=== PATIENT | female | born 1945 | race Two or more races ===

== ENCOUNTER 2022-07-20 11:59 | Inpatient (IN) | payer MEDICARE, MEDICAID ==
[~2022-07-20] VITALS: Ht 147.3 cm; Wt 66.8 kg
[2022-07-20 13:29] LABS: Basophils # (auto) 0.1 10 ^3/uL (0-0.2); Eosinophils # (auto) 0 10 ^3/uL (0-0.8); Eosinophils % (auto) 0.1 % (0.0-7.0); Lymphocytes # (auto) 2.5 10 ^3/uL (0.4-5.4); Neutrophils # (auto) 8.5 10 ^3/uL (1.6-8.6)
[2022-07-20 13:31] LABS: Basophils % (auto) 0.5 % (0.0-2.0); Hematocrit 54.2 % (36.0-46.0); Hemoglobin 18.4 g/dL (12.2-16.2); Lymphocytes % (auto) 20.6 % (10.0-50.0); Mean Corpuscular Hemoglobin 29.6 pg (28.0-32.0); Mean Corpuscular Volume 86.9 fL (80.0-100.0); Monocytes % (auto) 8.1 % (0.0-12.0); Neutrophils % (auto) 70.7 % (37.0-80.0); Nucleated Red Blood Cells % 0.8 %; Red Blood Cells 6.23 10^6/uL (4.0-5.20); Red Cell Distribution Width 14.7 % (11.8-14.3); White Blood Cell 12.1 10^3/uL (4.4-10.8)
[2022-07-20 13:57] LABS: Albumin 4.3 g/dL (3.4-5.0); BUN/Creatinine Ratio 14.2; Calcium 10.3 mg/dL (8.5-10.1); Potassium 3.9 mmol/L (3.5-5.1)
[2022-07-20 14:07] LABS: Bilirubin, Total 0.5 mg/dL (0.2-1.0)
[2022-07-20] MEDS ORDERED: metroNIDAZOLE 500MG/100ML 100 ML IV ONE (16:15)
[2022-07-20] MEDS ORDERED: MORPHINE SULFATE INJ 2 MG/ml SYRG IV PRN (16:15)
[2022-07-20] MEDS ORDERED: ALBUTEROL SULF 2.5 MG/0.5ML(0.5%) NEB SOLN NEB PRN (16:30)
[2022-07-20] MEDS ORDERED: PANTOPRAZOLE 40 MG/10 ML VIAL INJ IV ONE (16:30)
[2022-07-20] MEDS: LACTATED RINGER'S 1,000 ML IV SCH (16:56)
[2022-07-20] MEDS ORDERED: DEXTROSE (50%) 50ML SYRG IV PRN (17:15)
[2022-07-20 17:16] LABS: INR 1.07 (0.9-1.15)
[2022-07-20] MEDS: InsuLIN REG 1unit/0.01ml Soln (100units/ml) SC SCH (17:38)
[2022-07-20] MEDS: ACCU-CHEK COMFORT CURVE STRIP VI SCH (17:38)
[2022-07-20 22:49] VITALS: BP 124/76
[2022-07-20] MEDS: metroNIDAZOLE 500MG/100ML 100 ML IV SCH (22:54)
[2022-07-21] MEDS: ACCU-CHEK COMFORT CURVE STRIP VI SCH ×4 (00:28→18:23)
[2022-07-21] MEDS: InsuLIN REG 1unit/0.01ml Soln (100units/ml) SC SCH ×4 (00:42→18:00)
[2022-07-21] MEDS: ONDANSETRON HCL 4 MG/2 ML VIAL IV PRN (00:48)
[2022-07-21 03:51] LABS: Basophils # (auto) 0.3 10 ^3/uL (0-0.2); Basophils % (auto) 2.4 % (0.0-2.0); Eosinophils # (auto) 0 10 ^3/uL (0-0.8); Eosinophils % (auto) 0.3 % (0.0-7.0); Hematocrit 50.1 % (36.0-46.0); Hemoglobin 16.9 g/dL (12.2-16.2); Lymphocytes # (auto) 1.8 10 ^3/uL (0.4-5.4); Lymphocytes % (auto) 14.9 % (10.0-50.0); Mean Corpuscular Hemoglobin 29.3 pg (28.0-32.0); Mean Corpuscular Hgb Conc. 33.8 g/dL (32.0-36.0); Mean Corpuscular Volume 86.7 fL (80.0-100.0); Monocytes # (auto) 0.9 10 ^3/uL (0-1.3); Monocytes % (auto) 6.9 % (0.0-12.0); Neutrophils # (auto) 9.3 10 ^3/uL (1.6-8.6); Neutrophils % (auto) 75.5 % (37.0-80.0); Red Blood Cells 5.78 10^6/uL (4.0-5.20); Red Cell Distribution Width 14.7 % (11.8-14.3); White Blood Cell 12.4 10^3/uL (4.4-10.8)
[2022-07-21 04:11] LABS: Calcium 9.1 mg/dL (8.5-10.1); Potassium 3.6 mmol/L (3.5-5.1)
[2022-07-21 04:13] LABS: BUN/Creatinine Ratio 14.8
[2022-07-21] MEDS: metroNIDAZOLE 500MG/100ML 100 ML IV SCH ×3 (05:55→21:26)
[2022-07-21] MEDS: LACTATED RINGER'S 1,000 ML IV SCH ×2 (05:58→19:10)
[2022-07-21] MEDS: PANTOPRAZOLE 40 MG/10 ML VIAL INJ IV SCH (11:47)
[2022-07-21] MEDS: NICOTINE 7MG/24HR TOPICAL PATCH TD SCH (11:48)
[2022-07-21] MEDS ORDERED: levoFLOXacin 500MG 100 ML IV ONE (12:00)
[2022-07-21] MEDS ORDERED: SERT-160 PO (15:56)
[2022-07-21] MEDS ORDERED: LISI-275 PO (15:56)
[2022-07-21] MEDS ORDERED: AMLO-489 PO (15:56)
[2022-07-21] MEDS ORDERED: FLUT100M INH (15:57)
[2022-07-21] MEDS ORDERED: FLUT50SP NAS (15:57)
[2022-07-21 17:00] VITALS: BP 107/53
[2022-07-21 20:02] LABS: Urine Blood Negative /uL (Negative); Urine Specific Gravity 1.018 (1.001-1.035)
[2022-07-21 22:00] VITALS: BP 117/71
[2022-07-22] MEDS: ACCU-CHEK COMFORT CURVE STRIP VI SCH ×4 (01:22→17:27)
[2022-07-22 05:00] VITALS: BP 127/57
[2022-07-22] MEDS: metroNIDAZOLE 500MG/100ML 100 ML IV SCH ×3 (05:38→23:44)
[2022-07-22] MEDS: InsuLIN REG 1unit/0.01ml Soln (100units/ml) SC SCH ×5 (05:48→17:34)
[2022-07-22] MEDS: LACTATED RINGER'S 1,000 ML IV SCH ×2 (07:55→21:50)
[2022-07-22 09:00] VITALS: BP 113/76
[2022-07-22] MEDS: levoFLOXacin 250MG 100 ML IV SCH (10:46)
[2022-07-22] MEDS: PANTOPRAZOLE 40 MG/10 ML VIAL INJ IV SCH (10:46)
[2022-07-22] MEDS: NICOTINE 7MG/24HR TOPICAL PATCH TD SCH (10:47)
[2022-07-22 13:00] VITALS: BP 144/63
[2022-07-22 14:31] VITALS: BP 145/74
[2022-07-22 16:56] VITALS: BP 144/65
[2022-07-22 22:00] VITALS: BP 151/64
[2022-07-23] VITALS (7 sets, daily range): BP systolic 117–166; BP diastolic 53–87
[2022-07-23] MEDS: ACCU-CHEK COMFORT CURVE STRIP VI SCH ×4 (00:01→18:06)
[2022-07-23] MEDS: ONDANSETRON HCL 4 MG/2 ML VIAL IV PRN ×2 (00:13→05:25)
[2022-07-23] MEDS: FAMOTIDINE (10MG/ML) 2ML VL IV SCH ×2 (05:23→10:55)
[2022-07-23] MEDS: InsuLIN REG 1unit/0.01ml Soln (100units/ml) SC SCH ×4 (05:24→18:00)
[2022-07-23] MEDS: metroNIDAZOLE 500MG/100ML 100 ML IV SCH ×2 (05:45→15:33)
[2022-07-23] MEDS ORDERED: GASTROGRAFIN 120 ML SOL ONE (09:03)
[2022-07-23] MEDS: levoFLOXacin 250MG 100 ML IV SCH (10:00)
[2022-07-23] MEDS: NICOTINE 7MG/24HR TOPICAL PATCH TD SCH (10:55)
[2022-07-23] MEDS: LACTATED RINGER'S 1,000 ML IV SCH (11:10)
[2022-07-24] MEDS: LACTATED RINGER'S 1,000 ML IV SCH ×2 (00:30→13:50)
[2022-07-24] MEDS: metroNIDAZOLE 500MG/100ML 100 ML IV SCH ×3 (04:02→14:00)
[2022-07-24] MEDS: ACCU-CHEK COMFORT CURVE STRIP VI SCH ×3 (04:03→11:49)
[2022-07-24 05:00] VITALS: BP 139/66
[2022-07-24] MEDS: InsuLIN REG 1unit/0.01ml Soln (100units/ml) SC SCH ×3 (05:39→11:49)
[2022-07-24 09:00] VITALS: BP 150/69
[2022-07-24] MEDS: levoFLOXacin 250MG 100 ML IV SCH (10:00)
[2022-07-24] MEDS: NICOTINE 7MG/24HR TOPICAL PATCH TD SCH (10:35)
[2022-07-24] MEDS: FAMOTIDINE (10MG/ML) 2ML VL IV SCH (10:37)
[2022-07-24] MEDS ORDERED: METR500T PO (12:43)
[2022-07-24] MEDS ORDERED: LEVO500T31 PO (12:43)
[2022-07-24 13:00] VITALS: BP_SYST 147; BP_SYST 171; BP_DIAS 62; BP_DIAS 74
[2022-07-24] MEDS ORDERED: cloNIDine HCL 0.1 MG TAB PO ONE (13:00)
[2022-07-24 13:14] VITALS: BP 147/62
[2022-07-24 13:47] VITALS: BP 147/62
== END 2022-07-24 16:19 | disposition home or self-care (01) | DRG 871 ==
LOC: ER 11:59 → OVERFLOW 16:19 → WEST WING 07-21 15:13
PROVIDERS: ADMIT Registered Nurse; ATTEND Family Medicine
PROC: 0D9670Z Drainage of Stomach with Drainage Device, Via Natural or Artificial Opening (ICD-10-PCS; principal; 2022-07-22)
DX: A41.9 Sepsis, unspecified organism (principal); N17.0 Acute kidney failure with tubular necrosis; K46.0 Unspecified abdominal hernia with obstruction, without gangrene; E86.0 Dehydration; I10 Essential (primary) hypertension; F17.210 Nicotine dependence, cigarettes, uncomplicated; J43.9 Emphysema, unspecified; I49.5 Sick sinus syndrome; Z20.822 Contact with and (suspected) exposure to COVID-19; D50.9 Iron deficiency anemia, unspecified; Z88.0 Allergy status to penicillin; Z88.1 Allergy status to other antibiotic agents; Z88.6 Allergy status to analgesic agent; Z90.49 Acquired absence of other specified parts of digestive tract; Z90.710 Acquired absence of both cervix and uterus; Z99.3 Dependence on wheelchair; Z71.6 Tobacco abuse counseling; Z86.73 Personal history of transient ischemic attack (TIA), and cerebral infarction without residual deficits
CPT/HCPCS: 36415; 71045; 74176; 74250; 80048; 80053; 81003; 82150; 82962; 83690; 85025; 85610; 86850; 86900; 86901; 87040; 87426; 93005; 96374; C9113; G0378; J1815; J1956; J2405; J3490

== ENCOUNTER 2023-05-15 00:33 | Inpatient (IN) | payer MEDICARE, MEDICAID ==
[~2023-05-15] VITALS: Ht 147.3 cm; Wt 66.7 kg
[~2023-05-15 00:33] MED LIST: AMLO1TAB22 PO; FLUT100M INH; FLUT50SP NAS; LEVO500T31 PO; LISI-275 PO; METR500T PO; SERT-160 PO
[2023-05-15 01:39] LABS: INR 1.09 (0.9-1.15); Partial Thromboplastin Time 31.3 SEC (24.5-34.5); Prothrombin Time 11.4 sec (9.3-11.8)
[2023-05-15 01:45] LABS: Alanine Aminotransferase 31 U/L (7-40); Albumin 4.7 g/dL (3.2-4.8); Alkaline Phosphatase 81 U/L (46-116); Calcium 9.8 mg/dL (8.7-10.4); Carbon Dioxide 27 mmol/L (20-30); Chloride 107 mmol/L (98-107); Glucose 192 mg/dL (74-106); Lipase 42 U/L (12-53); Potassium 3.9 mmol/L (3.5-5.1)
[2023-05-15 01:46] LABS: Anion Gap 8 (5-15); Aspartate Aminotransferase 20 U/L (13-40); BUN/Creatinine Ratio 16.1 (10.0-20.0); Bilirubin, Total 0.5 mg/dL (0.2-1.0); Blood Urea Nitrogen 14 mg/dL (9-23); Sodium 142 mmol/L (136-145); Total Protein 7.5 g/dL (5.7-8.2)
[2023-05-15 02:21] LABS: Basophils # (auto) 0.1 10 ^3/uL (0-0.2); Basophils % (auto) 0.4 % (0.0-2.0); Eosinophils # (auto) 0 10 ^3/uL (0-0.8); Eosinophils % (auto) 0.1 % (0.0-7.0); Hematocrit 52.2 % (36.0-46.0); Lymphocytes # (auto) 1.5 10 ^3/uL (0.4-5.4); Lymphocytes % (auto) 8.8 % (10.0-50.0); Mean Corpuscular Hemoglobin 30.3 pg (28.0-32.0); Mean Corpuscular Hgb Conc. 34.5 g/dL (32.0-36.0); Mean Corpuscular Volume 87.9 fL (80.0-100.0); Monocytes # (auto) 0.6 10 ^3/uL (0-1.3); Monocytes % (auto) 3.4 % (0.0-12.0); Neutrophils % (auto) 87.3 % (37.0-80.0); Nucleated Red Blood Cells % 0.3 %; Red Blood Cells 5.95 10^6/uL (4.0-5.20); Red Cell Distribution Width 14.6 % (11.8-14.3); White Blood Cell 17.2 10^3/uL (4.4-10.8)
[2023-05-15 04:30] VITALS: PULSE 91; RESP 15; O2SAT 92
[2023-05-15] MEDS ORDERED: ENALAPRILAT 1.25 MG/ML-1ML VIAL IV ONE (04:30)
[2023-05-15] MEDS ORDERED: ONDANSETRON HCL 4 MG/2 ML VIAL IV ONE (04:30)
[2023-05-15] MEDS ORDERED: levoFLOXacin 750MG 150 ML IV ONE (04:30)
[2023-05-15] MEDS ORDERED: SODIUM CHLORIDE 0.9% 1,000 ML IV ONE (04:30)
[2023-05-15] MEDS ORDERED: LORazepam 2MG/ML-1ML VIAL IV ONE (04:30)
[2023-05-15] MEDS ORDERED: PANTOPRAZOLE 40 MG/10 ML VIAL INJ IV ONE (04:30)
[2023-05-15] MEDS ORDERED: metroNIDAZOLE 500MG/100ML 100 ML IV ONE (04:30)
[2023-05-15] MEDS ORDERED: DOCUSATE SOD 100 MG CAP PO PRN (07:00)
[2023-05-15] MEDS ORDERED: IBUPROFEN 600 MG TAB PO PRN (07:00)
[2023-05-15] MEDS ORDERED: ONDANSETRON HCL 4 MG/2 ML VIAL IV PRN (07:00)
[2023-05-15 07:44] LABS: Basophils # (auto) 0 10 ^3/uL (0-0.2); Basophils % (auto) 0.3 % (0.0-2.0); Eosinophils # (auto) 0 10 ^3/uL (0-0.8); Hematocrit 48.2 % (36.0-46.0); Hemoglobin 16.6 g/dL (12.2-16.2); Lymphocytes # (auto) 0.9 10 ^3/uL (0.4-5.4); Lymphocytes % (auto) 6.4 % (10.0-50.0); Mean Corpuscular Hgb Conc. 34.4 g/dL (32.0-36.0); Mean Corpuscular Volume 87.3 fL (80.0-100.0); Monocytes # (auto) 0.3 10 ^3/uL (0-1.3); Neutrophils # (auto) 13.3 10 ^3/uL (1.6-8.6); Neutrophils % (auto) 91.3 % (37.0-80.0); Nucleated Red Blood Cells % 0.2 %; Red Blood Cells 5.52 10^6/uL (4.0-5.20); Red Cell Distribution Width 14.9 % (11.8-14.3); White Blood Cell 14.5 10^3/uL (4.4-10.8)
[2023-05-15 08:34] LABS: Alanine Aminotransferase 26 U/L (7-40); Albumin 4.5 g/dL (3.2-4.8); Alkaline Phosphatase 63 U/L (46-116); Aspartate Aminotransferase 30 U/L (13-40); BUN/Creatinine Ratio 11.5 (10.0-20.0); Blood Urea Nitrogen 11 mg/dL (9-23); Calcium 9.6 mg/dL (8.5-10.1); Carbon Dioxide 25 mmol/L (20-30); Glucose 170 mg/dL (74-106)
[2023-05-15 08:35] LABS: Bilirubin, Total 0.4 mg/dL (0.2-1.0); Total Protein 7.2 g/dL (5.7-8.2)
[2023-05-15 08:54] LABS: Anion Gap 7 (5-15); Chloride 109 mmol/L (98-107); Potassium 4.1 mmol/L (3.5-5.1); Sodium 141 mmol/L (136-145)
[2023-05-15] MEDS: SOD CHL 0.45% 1,000 ML IV SCH ×2 (09:17→22:01)
[2023-05-15] MEDS ORDERED: levoFLOXacin 500MG 100 ML IV SCH (10:00)
[2023-05-15 10:23] LABS: Urine Bacteria NONE SEEN /hpf (None Seen); Urine Blood Negative /uL (Negative); Urine Clarity Clear (Clear); Urine Color Yellow (Yellow); Urine Mucus FEW (None Seen); Urine Protein, UAD 1+ (Negative); Urine Specific Gravity 1.016 (1.001-1.035); Urine Urobilinogen Normal (Negative); Urine WBC 1 /hpf (0 - 5)
[2023-05-15 11:56] VITALS: PULSE 83; RESP 16; O2SAT 94
[2023-05-15] MEDS: metroNIDAZOLE 500MG/100ML 100 ML IV SCH ×2 (14:31→22:01)
[2023-05-15 18:56] VITALS: BP 140/68; PULSE 71; RESP 16; TEMP 99.1; O2SAT 92
[2023-05-15 20:00] VITALS: BP 144/65; PULSE 73; RESP 18; TEMP 97.8; O2SAT 96
[2023-05-15 22:00] VITALS: BP 144/65; PULSE 73; RESP 18; TEMP 97.8; O2SAT 96
[2023-05-16] VITALS (7 sets, daily range): BP systolic 109–159; BP diastolic 66–82; PULSE 16–76; RESP 16–20; TEMP 97.1–97.9; O2SAT 92–97
[2023-05-16] MEDS: metroNIDAZOLE 500MG/100ML 100 ML IV SCH ×3 (05:52→22:10)
[2023-05-16 06:51] LABS: Basophils # (auto) 0 10 ^3/uL (0-0.2); Basophils % (auto) 0.5 % (0.0-2.0); Eosinophils # (auto) 0.1 10 ^3/uL (0-0.8); Eosinophils % (auto) 1.4 % (0.0-7.0); Hematocrit 43.4 % (36.0-46.0); Hemoglobin 14.8 g/dL (12.2-16.2); Lymphocytes # (auto) 3.2 10 ^3/uL (0.4-5.4); Lymphocytes % (auto) 33.7 % (10.0-50.0); Mean Corpuscular Hemoglobin 30.2 pg (28.0-32.0); Mean Corpuscular Hgb Conc. 34.1 g/dL (32.0-36.0); Mean Corpuscular Volume 88.6 fL (80.0-100.0); Monocytes # (auto) 0.6 10 ^3/uL (0-1.3); Monocytes % (auto) 5.9 % (0.0-12.0); Neutrophils # (auto) 5.5 10 ^3/uL (1.6-8.6); Neutrophils % (auto) 58.5 % (37.0-80.0); Nucleated Red Blood Cells % 0.1 %; Red Cell Distribution Width 14.9 % (11.8-14.3); White Blood Cell 9.4 10^3/uL (4.4-10.8)
[2023-05-16 06:57] LABS: Alanine Aminotransferase 19 U/L (7-40); Alkaline Phosphatase 57 U/L (46-116); Anion Gap 4 (5-15); BUN/Creatinine Ratio 14.7 (10.0-20.0); Blood Urea Nitrogen 11 mg/dL (9-23); Calcium 8.8 mg/dL (8.7-10.4); Carbon Dioxide 28 mmol/L (20-30); Chloride 111 mmol/L (98-107); Glucose 101 mg/dL (74-106); Potassium 3.8 mmol/L (3.5-5.1); Sodium 143 mmol/L (136-145)
[2023-05-16 06:58] LABS: Albumin 3.8 g/dL (3.2-4.8); Aspartate Aminotransferase 16 U/L (13-40)
[2023-05-16 06:59] LABS: Bilirubin, Total 0.5 mg/dL (0.2-1.0); Total Protein 6.1 g/dL (5.7-8.2)
[2023-05-16] MEDS: PANTOPRAZOLE 40 MG/10 ML VIAL INJ IV SCH (09:10)
[2023-05-16] MEDS: levoFLOXacin 250MG 50 ML IV SCH (09:10)
[2023-05-16] MEDS: SOD CHL 0.45% 1,000 ML IV SCH ×2 (14:19→22:10)
[2023-05-17 05:00] VITALS: BP 159/67; PULSE 68; RESP 16; TEMP 97.8; O2SAT 95
[2023-05-17] MEDS: metroNIDAZOLE 500MG/100ML 100 ML IV SCH ×3 (06:35→21:25)
[2023-05-17] MEDS: hydrALAZINE HCL 20 MG/ML VL IV PRN ×2 (06:35→22:35)
[2023-05-17 08:46] VITALS: BP 167/72; PULSE 99; RESP 20; TEMP 98.1; O2SAT 94
[2023-05-17] MEDS: levoFLOXacin 250MG 50 ML IV SCH (09:30)
[2023-05-17] MEDS: PANTOPRAZOLE 40 MG/10 ML VIAL INJ IV SCH (09:31)
[2023-05-17 13:00] VITALS: BP 135/67; PULSE 89; RESP 19; TEMP 98.6; O2SAT 93
[2023-05-17] MEDS: SOD CHL 0.45% 1,000 ML IV SCH (13:52)
[2023-05-17 17:00] VITALS: BP 140/75; PULSE 110; RESP 21; TEMP 98.8; O2SAT 93
[2023-05-17 22:00] VITALS: BP 160/76; PULSE 82; RESP 16; TEMP 98.7; O2SAT 93
[2023-05-18] VITALS (7 sets, daily range): BP systolic 124–148; BP diastolic 55–75; PULSE 87–107; RESP 16–18; TEMP 96.5–98.6; O2SAT 91–93
[2023-05-18] MEDS: SOD CHL 0.45% 1,000 ML IV SCH ×2 (02:30→16:30)
[2023-05-18] MEDS: metroNIDAZOLE 500MG/100ML 100 ML IV SCH ×3 (05:49→22:11)
[2023-05-18] MEDS: levoFLOXacin 250MG 50 ML IV SCH (09:03)
[2023-05-18 10:19] LABS: Basophils # (auto) 0.1 10 ^3/uL (0-0.2); Basophils % (auto) 0.7 % (0.0-2.0); Eosinophils # (auto) 0.1 10 ^3/uL (0-0.8); Eosinophils % (auto) 0.9 % (0.0-7.0); Hematocrit 47.6 % (36.0-46.0); Hemoglobin 15.9 g/dL (12.2-16.2); Lymphocytes # (auto) 1.8 10 ^3/uL (0.4-5.4); Lymphocytes % (auto) 17.9 % (10.0-50.0); Mean Corpuscular Hemoglobin 29.7 pg (28.0-32.0); Mean Corpuscular Hgb Conc. 33.5 g/dL (32.0-36.0); Mean Corpuscular Volume 88.8 fL (80.0-100.0); Monocytes # (auto) 0.6 10 ^3/uL (0-1.3); Monocytes % (auto) 5.9 % (0.0-12.0); Neutrophils # (auto) 7.5 10 ^3/uL (1.6-8.6); Neutrophils % (auto) 74.6 % (37.0-80.0); Nucleated Red Blood Cells % 0.1 %; Red Blood Cells 5.36 10^6/uL (4.0-5.20); Red Cell Distribution Width 14.9 % (11.8-14.3)
[2023-05-18 10:54] LABS: Alanine Aminotransferase 27 U/L (7-40); Albumin 4.2 g/dL (3.2-4.8); Alkaline Phosphatase 60 U/L (46-116); Anion Gap 10 (5-15); Aspartate Aminotransferase 25 U/L (13-40); BUN/Creatinine Ratio 15.1 (10.0-20.0); Bilirubin, Total 0.6 mg/dL (0.2-1.0); Blood Urea Nitrogen 11 mg/dL (9-23); Calcium 9.1 mg/dL (8.7-10.4); Carbon Dioxide 23 mmol/L (20-30); Chloride 109 mmol/L (98-107); Glucose 100 mg/dL (74-106); Potassium 3.2 mmol/L (3.5-5.1); Sodium 142 mmol/L (136-145)
[2023-05-18 10:55] LABS: Total Protein 6.6 g/dL (5.7-8.2)
[2023-05-18] MEDS ORDERED: GASTROGRAFIN 120 ML SOL ONE (13:00)
[2023-05-19] VITALS (7 sets, daily range): BP systolic 112–177; BP diastolic 52–74; PULSE 79–105; RESP 8–20; TEMP 96.9–98.9; O2SAT 92–97
[2023-05-19] MEDS: SOD CHL 0.45% 1,000 ML IV SCH ×2 (04:35→18:14)
[2023-05-19] MEDS: metroNIDAZOLE 500MG/100ML 100 ML IV SCH ×3 (05:43→22:06)
[2023-05-19 08:19] LABS: Alanine Aminotransferase 36 U/L (7-40); Albumin 4.3 g/dL (3.2-4.8); Alkaline Phosphatase 55 U/L (46-116); Anion Gap 13 (5-15); Aspartate Aminotransferase 35 U/L (13-40); BUN/Creatinine Ratio 21.1 (10.0-20.0); Blood Urea Nitrogen 15 mg/dL (9-23); Calcium 9.7 mg/dL (8.5-10.1); Carbon Dioxide 24 mmol/L (20-30); Chloride 113 mmol/L (98-107); Glucose 118 mg/dL (74-106); Potassium 3.7 mmol/L (3.5-5.1)
[2023-05-19 08:20] LABS: Bilirubin, Total 0.7 mg/dL (0.2-1.0)
[2023-05-19 08:21] LABS: Total Protein 6.9 g/dL (5.7-8.2)
[2023-05-19 08:31] LABS: Sodium 150 mmol/L (136-145)
[2023-05-19] MEDS: hydrALAZINE HCL 20 MG/ML VL IV PRN ×2 (10:44→22:07)
[2023-05-19] MEDS: levoFLOXacin 250MG 50 ML IV SCH (11:10)
[2023-05-20] VITALS (7 sets, daily range): BP systolic 109–158; BP diastolic 62–74; PULSE 90–110; RESP 8–19; TEMP 97.6–98.3; O2SAT 94–97
[2023-05-20] MEDS: metroNIDAZOLE 500MG/100ML 100 ML IV SCH ×3 (05:26→22:31)
[2023-05-20] MEDS: hydrALAZINE HCL 20 MG/ML VL IV PRN (05:26)
[2023-05-20] MEDS: SOD CHL 0.45% 1,000 ML IV SCH ×2 (05:27→20:35)
[2023-05-20] MEDS ORDERED: levoFLOXacin 500MG 100 ML IV SCH (10:00)
[2023-05-21] VITALS (7 sets, daily range): BP systolic 144–158; BP diastolic 67–76; PULSE 63–94; RESP 14–22; TEMP 98.1–98.6; O2SAT 94–96
[2023-05-21] MEDS: metroNIDAZOLE 500MG/100ML 100 ML IV SCH ×4 (06:30→21:57)
[2023-05-21] MEDS: levoFLOXacin 250MG 50 ML IV SCH (10:07)
[2023-05-21] MEDS: SOD CHL 0.45% 1,000 ML IV SCH ×2 (10:07→23:15)
[2023-05-21 11:01] LABS: Basophils # (auto) 0 10 ^3/uL (0-0.2); Basophils % (auto) 0.4 % (0.0-2.0); Eosinophils # (auto) 0 10 ^3/uL (0-0.8); Eosinophils % (auto) 0.3 % (0.0-7.0); Hemoglobin 16.1 g/dL (12.2-16.2); Lymphocytes # (auto) 1.9 10 ^3/uL (0.4-5.4); Lymphocytes % (auto) 19.4 % (10.0-50.0); Mean Corpuscular Hemoglobin 29.5 pg (28.0-32.0); Mean Corpuscular Hgb Conc. 33.6 g/dL (32.0-36.0); Mean Corpuscular Volume 87.7 fL (80.0-100.0); Monocytes # (auto) 0.8 10 ^3/uL (0-1.3); Monocytes % (auto) 7.5 % (0.0-12.0); Neutrophils # (auto) 7.2 10 ^3/uL (1.6-8.6); Neutrophils % (auto) 72.4 % (37.0-80.0); Nucleated Red Blood Cells % 0.2 %; Red Blood Cells 5.47 10^6/uL (4.0-5.20); Red Cell Distribution Width 15.1 % (11.8-14.3); White Blood Cell 9.9 10^3/uL (4.4-10.8)
[2023-05-21 11:48] LABS: Alanine Aminotransferase 34 U/L (7-40); Albumin 4.3 g/dL (3.2-4.8); Alkaline Phosphatase 59 U/L (46-116); Anion Gap 13 (5-15); Aspartate Aminotransferase 21 U/L (13-40); BUN/Creatinine Ratio 22.4 (10.0-20.0); Bilirubin, Total 0.6 mg/dL (0.2-1.0); Blood Urea Nitrogen 17 mg/dL (9-23); Calcium 9.7 mg/dL (8.7-10.4); Carbon Dioxide 30 mmol/L (20-30); Chloride 109 mmol/L (98-107); Glucose 125 mg/dL (74-106); Sodium 152 mmol/L (136-145); Total Protein 6.7 g/dL (5.7-8.2)
[2023-05-21 12:01] LABS: Potassium 2.9 mmol/L (3.5-5.1)
[2023-05-21] MEDS: POTASSIUM CHL 20MEQ/100ML 100 ML IV SCH ×3 (12:57→18:09)
[2023-05-22 05:05] VITALS: BP 146/61; PULSE 60; RESP 16; TEMP 97.8; O2SAT 96
[2023-05-22] MEDS: metroNIDAZOLE 500MG/100ML 100 ML IV SCH ×3 (05:59→21:02)
[2023-05-22 08:00] VITALS: PULSE 78; RESP 20; O2SAT 94
[2023-05-22 08:30] VITALS: BP 105/61; PULSE 78; RESP 20; TEMP 98.6; O2SAT 97
[2023-05-22] MEDS: levoFLOXacin 250MG 50 ML IV SCH (09:30)
[2023-05-22 12:30] VITALS: BP 168/77; PULSE 66; RESP 18; TEMP 97.9; O2SAT 97
[2023-05-22] MEDS: SOD CHL 0.45% 1,000 ML IV SCH (12:35)
[2023-05-22] MEDS: hydrALAZINE HCL 20 MG/ML VL IV PRN (13:51)
[2023-05-22 17:15] VITALS: BP 146/59; PULSE 84; RESP 22; TEMP 97.8; O2SAT 93
[2023-05-22 22:00] VITALS: BP 147/65; PULSE 73; RESP 18; TEMP 98.2; O2SAT 94
[2023-05-23 05:00] VITALS: BP 128/71; PULSE 69; RESP 18; TEMP 97.8; O2SAT 96
[2023-05-23] MEDS: metroNIDAZOLE 500MG/100ML 100 ML IV SCH ×2 (06:12→16:37)
[2023-05-23 08:00] VITALS: PULSE 75; RESP 20
[2023-05-23 08:30] VITALS: BP 167/79; PULSE 75; RESP 20; TEMP 97.9; O2SAT 95
[2023-05-23] MEDS: levoFLOXacin 250MG 50 ML IV SCH (08:50)
[2023-05-23] MEDS: hydrALAZINE HCL 20 MG/ML VL IV PRN (09:36)
[2023-05-23] MEDS ORDERED: MET500T PO (10:07)
[2023-05-23] MEDS ORDERED: LEVO500T91 PO (10:07)
[2023-05-23 13:00] VITALS: BP 138/74; PULSE 78; RESP 22; TEMP 98; O2SAT 97
[2023-05-23 15:43] VITALS: BP 138/74; PULSE 78; RESP 22; TEMP 98; O2SAT 97
== END 2023-05-23 16:31 | disposition home or self-care (01) | DRG 871 ==
LOC: EDBD 00:33 → ER 00:33 → OVERFLOW 07:17 → EAST 18:18
PROVIDERS: ADMIT Nurse Practitioner Family; ATTEND Family Medicine
PROC: 0D9670Z Drainage of Stomach with Drainage Device, Via Natural or Artificial Opening (ICD-10-PCS; principal; 2023-05-15)
DX: A41.9 Sepsis, unspecified organism (principal); J96.00 Acute respiratory failure, unspecified whether with hypoxia or hypercapnia; K43.6 Other and unspecified ventral hernia with obstruction, without gangrene; K43.0 Incisional hernia with obstruction, without gangrene; E66.9 Obesity, unspecified; I10 Essential (primary) hypertension; E86.0 Dehydration; J44.9 Chronic obstructive pulmonary disease, unspecified; Z88.0 Allergy status to penicillin; Z88.1 Allergy status to other antibiotic agents; Z88.6 Allergy status to analgesic agent; Z90.711 Acquired absence of uterus with remaining cervical stump; Z68.30 Body mass index [BMI] 30.0-30.9, adult; Z88.2 Allergy status to sulfonamides; Z88.5 Allergy status to narcotic agent
CPT/HCPCS: 36415; 71045; 74176; 74250; 80053; 81001; 83605; 83690; 83735; 84484; 85025; 85610; 85730; 87040; 93005; 97110; 97116; 97163; 97530; C9113; G0378; J1956; J2405; J3480; J3490

== ENCOUNTER 2025-02-24 10:04 | Inpatient (IN) | payer MEDICARE, MEDICAID ==
[2025-02-24] VITALS (7 sets, daily range): BP systolic 139–188; BP diastolic 64–90; PULSE 99–109; RESP 16–20; TEMP 98.3–98.5; O2SAT 92–98
[~2025-02-24] VITALS: Ht 147.3 cm; Wt 72.0 kg
[~2025-02-24 10:04] MED LIST changes: +LEVO500T91 PO; +MET500T PO
--- NOTE | 2025-02-24 10:36 | DVH ---
XY CHEST PORTABLE, HISTORY: sob COMPARISON: XY CHEST XRAY 1 VIEW on DOS: 05/15/23, XY CHEST PORTABLE on DOS: 05/15/23, CXR1 on DOS: 07/22/22 XY CHEST XRAY 1 VIEW on DOS: 05/15/23, XY CHEST PORTABLE on DOS: 05/15/23, CXR1 on DOS: 07/22/22 TECHNICAL DATA: 1 view of the chest was obtained. FINDINGS: Lines and tubes: None Cardiomediastinal silhouette: normal Pulmonary vasculature: normal Lung expansion: normal Lung airspace: Similar right basilar pulmonary nodule. Patchy left basilar airspace opacity. Lung interstitium: normal Pleura: normal Pneumothorax: no Bones: Right shoulder and neck hardware is seen. Other: no IMPRESSION: Patchy left basilar airspace opacity. Similar right basilar pulmonary nodule.
[2025-02-24 10:42] LABS: Hematocrit 51.2 % (36.0-46.0); Hemoglobin 17.1 g/dL (12.2-16.2); Mean Corpuscular Hemoglobin 29.6 pg (28.0-32.0); Mean Corpuscular Volume 88.6 fL (80.0-100.0); Nucleated Red Blood Cells % 0.1 %
--- NOTE | 2025-02-24 10:54 | ED.PDOC ---
History of Present Illness HPI Comments 79-year-old female with prior medical history of intestinal blockages, ventral hernias, COPD: surgical history of appendectomy, gout and a chief complaint of abdominal pain. Patient reports that she has diffuse link sensation in the abdominal area which started yesterday with nausea states that it feels like last time when she had intestinal blockages. Patient did have a bowel movement yesterday and her urine looked normal today. Denies chills, fever, /D, SOB, CP. No other associated symptoms, modifiers, recent injuries or sick contacts present at this time. Chief Complaint: Abdominal Pain Time Seen by MD: 10:40 Primary Care Provider: Vicki Tobias Reviewed Notes: Nurses Notes, Medications, Allergies Allergies: Coded Allergies: Acetaminophen (Verified Allergy, Unknown, 07/20/22) Azithromycin (Verified Allergy, Unknown, 07/20/22) Hydrocodone (Verified Allergy, Unknown, 07/20/22) Metoclopramide (Verified Allergy, Unknown, 07/20/22) Penicillins (Verified Allergy, Unknown, 07/20/22) Sulfa Antibiotics (Verified Allergy, Unknown, 07/20/22) Home Meds Active Scripts Levofloxacin Hemihydrate (LEVAQUIN 500 MG) 500 Mg Tab, 1 TAB PO DAILY, #7 TAB Prov:JACEK ESPANA MD 05/23/23 Metronidazole (Metronidazole) 500 Mg Tab, 500 MG PO TID, #21 TAB Prov:JACEK ESPANA MD 05/23/23 Metronidazole (Flagyl) 500 Mg Tab, 500 MG PO TID, #21 TAB Prov:JACEK ESPANA MD 07/24/22 Levofloxacin (Levaquin) 500 Mg Tab, 500 MG PO DAILY, #7 TAB Prov:JACEK ESPANA MD 07/24/22 Reported Medications Fluticasone-Salmeterol (Advair Diskus 100-50 Mcg/Dose) 1 Aer Aer, 1 PUFF INH BID 07/21/22 Fluticasone Propionate (Nasal) (Fluticasone Propionate) 50 Mcg/Act Spr, 1 SPRAY CARO DAILYPRN 07/21/22 Lisinopril (Lisinopril) 5 Mg Tab, 1 TAB PO DAILYPRN 07/21/22 Sertraline Hcl (Sertraline Hcl) 100 Mg Tab, 1 TAB PO DAILYPRN 07/21/22 Amlodipine Besylate (Amlodipine Besylate) 5 Mg Tab, 1 TAB PO DAILYPRN 07/21/22 Information Source: Patient Mode of Arrival: Ambulatory Severity: Moderate Timing: Hours Duration: Since onset, Hours Prehospital treatment: None Past Medical History PAST MEDICAL HISTORY: COPD Past Medical History (Other): Intestinal blockages, ventral hernia Surgical History: Appendectomy Surgical History (Other): Gout OIL BOILER History: Denies all OIL BOILER Hx Family History Family History: Reviewed,noncontributory to illness Social History Smoker: Unknown Alcohol: Unknown Drugs: Unknown Lives In: Home Constitutional: denies: chills, diaphoresis, fatigue, fever, malaise, sweats, weakness, others EENTM: denies: blurred vision, double vision, ear bleeding, ear discharge, ear drainage, ear pain, ear ringing, eye pain, eye redness, hearing loss, mouth pain, mouth swelling, nasal discharge, nose bleeding, nose congestion, nose pain, photophobia, tearing, throat pain, throat swelling, voice changes, others Respiratory: denies: cough, hemoptysis, orthopnea, SOB at rest, shortness of breath, SOB with excertion, stridor, wheezing, others Cardiovascular: denies: chest pain, dizzy spells, diaphoresis, Dyspnea on exertion, edema, irregular heart beat, left arm pain, lightheadedness, palpitations, PND, syncope, others Gastrointestinal: reports: abdominal pain, nausea, vomiting; denies: abdomen distended, blood streaked bowels, constipated, diarrhea, dysphagia, difficulty swallowing, hematemesis, melena, poor appetite, poor fluid intake, rectal bleeding, rectal pain, others Genitourinary: denies: abnormal vagina bleeding, burning, dyspareunia, dysuria, flank pain, frequency, hematuria, incontinence, pain, , vagina discharge, urgency, others Neurological: denies: dizziness, fainting, headache, left sided numbness, left sided weakness, numbness, paresthesia, pre-existing deficit, right sided numbness, right sided weakness, seizure, speech problems, tingling, tremors, weakness, others Musculoskeletal: denies: back pain, gout, joint pain, joint swelling, muscle pain, muscle stiffness, neck pain, others Integumetry: denies: bruises, change in color, change in hair/nails, dryness, laceration, lesions, lumps, rash, wounds, others Allergic/Immunocompromised: denies: Difficulty Healing, Frequent Infections, Hives, Itching, others Hematologic/Lymphatic: denies: anemia, blood clots, easy bleeding, easy bruising, swollen glands, others Endocrine: denies: excessive hunger, excessive sweating, excessive thirst, excessive urination, flushing, intolerance to cold, intolerance to heat, unexplained weight gain, unexplained weight loss, others Psychiatric: denies: anxiety, bipolar disorder, depression, hopeless, panic disorder, schizophrenia, sleepless, suicidal, others All Other Systems: Reviewed and Negative Physical Exam General Appearance: Moderate Distress, Normal HEENT: Normal ENT Inspection, Pharynx Normal, TMs Normal Neck: Full Range of Motion, Non-Tender, Normal, Normal Inspection Respiratory: Chest Non-Tender, Lungs Clear, No Accessory Muscle Use, No Respiratory Distress, Normal Breath Sounds Cardiovascular: No Edema, No JVD, No Murmur, No Gallop, Normal Peripheral Pulses, Regular Rate/Rhythm Breast Exam: Deferred Gastrointestinal: No Organomegaly, Non Tender, No Pulsatile Mass, Normal Bowel Sounds, Soft Genitalia: Deferred Pelvic: Deferred Rectal: Deferred Extremities: No calf tenderness, Normal capillary refill, Normal inspection, Normal range of motion, Non-tender, No pedal edema Musculoskeletal : Apperance: Normal Neurologic: Alert, franchise field consultant II-XII nml as Tested, No Motor Deficits, Normal Affect, Normal Mood, No Sensory Deficits Cerebellar Function: NOT DONE Reflexes: NOT DONE Skin: Dry, Normal Color, Warm Peripheral Pulses: 3+ Radial (R), 3+ Radial (L) Lymphatic: No Adenopathy Was a procedure done? Was a procedure done?: No Differential Dx Considerations may include: Colitis Electrolyte imbalance X-Ray, Labs, Meds, VS Vital Signs Date Time Temp Pulse Resp B/P (MAP) Pulse Ox O2 Delivery O2 Flow Rate FiO2 02/24/25 10:46 Room Air* 0 21 02/24/25 10:43 104 16 96 Room Air* 0 21 02/24/25 10:41 98.4 104 18 175/80 (111) 95 98.4 02/24/25 10:13 98.0 103 18 190/90 (123) 93 98.0 Lab Test 02/24/25 11:32 02/24/25 11:30 02/24/25 10:30 Range/Units Lactic Acid Level Pending Urine Color Light-yellow Yellow Urine Clarity Clear Clear Urine pH 6.5 5.0-9.0 Urine Specific [place] 1.018 1.001-1.035 Urine Protein 1+ H Negative Urine Ketones 2+ H Negative Urine Blood Negative Negative /uL Urine Nitrite Negative Negative Urine Bilirubin Negative Negative Urine Urobilinogen Normal Negative mg/dL Urine Leukocyte Esterase Negative Negative /uL Urine RBC 8 0 - 4 /hpf Urine Microscopic WBC 2 0-5 /HPF Urine Squamous Epithelial Cells Few <5 /hpf Urine Bacteria None seen None Seen /hpf Urine Glucose Trace Normal mg/dL White Blood Count 15.0 H 4.4-10.8 10^3/uL Red Blood Count 5.77 H 4.0-5.20 10^6/uL Hemoglobin 17.1 H 12.2-16.2 g/dL Hematocrit 51.2 H 36.0-46.0 % Mean Corpuscular Volume 88.6 80.0-100.0 fL Mean Corpuscular Hemoglobin 29.6 28.0-32.0 pg Mean Corpuscular Hemoglobin Concent 33.4 32.0-36.0 g/dL Red Cell Distribution Width 14.3 11.8-14.3 % Platelet Count 157 140-450 10^3/uL Mean Platelet Volume 8.5 6.9-10.8 fL Neutrophils (%) (Auto) 89.6 H 37.0-80.0 % Lymphocytes (%) (Auto) 7.4 L 10.0-50.0 % Monocytes (%) (Auto) 2.5 0.0-12.0 % Eosinophils (%) (Auto) 0.0 0.0-7.0 % Basophils (%) (Auto) 0.5 0.0-2.0 % Neutrophils # (Auto) 13.4 H 1.6-8.6 10 ^3/uL Lymphocytes # (Auto) 1.1 0.4-5.4 10 ^3/uL Monocytes # (Auto) 0.4 0-1.3 10 ^3/uL Eosinophils # (Auto) 0 0-0.8 10 ^3/uL Basophils # (Auto) 0.1 0-0.2 10 ^3/uL Nucleated Red Blood Cells 0.1 % Sodium Level 143 136-145 mmol/L Potassium Level 3.9 3.5-5.1 mmol/L Chloride Level 107 98-107 mmol/L Carbon Dioxide Level 24 20-31 mmol/L Anion Gap 12 5-15 Blood Urea Nitrogen 16 9-23 mg/dL Creatinine 1.02 0.550-1.02 mg/dL Glomerular Filtration Rate Calc 57 >90 mL/min BUN/Creatinine Ratio 15.7 10.0-20.0 Serum Glucose 203 H 74-106 mg/dL Calcium Level 10.3 8.7-10.4 mg/dL Total Bilirubin 0.5 0.2-1.0 mg/dL Aspartate Amino Transferase (AST) 28 13-40 U/L Alanine Aminotransferase (ALT) 34 7-40 U/L Alkaline Phosphatase 73 46-116 U/L Troponin I High Sensitivity 6 </=34 ng/L Total Protein 7.7 5.7-8.2 g/dL Albumin 5.2 H 3.2-4.8 g/dL Current Medications Medications (Trade) Dose Ordered Sig/Heather Route Start Time Stop Time Status Last Admin Levofloxacin/ Dextrose 100 ml @ 100 mls/hr ONCE ONCE IV 02/24/25 11:45 02/24/25 12:44 02/24/25 11:48 Metronidazole 100 ml @ 100 mls/hr ONCE ONCE IV 02/24/25 11:45 02/24/25 12:44 02/24/25 11:48 Sodium Chloride 1,000 ml @ 2,000 mls/hr Q30M ONCE IV 02/24/25 11:45 02/24/25 12:14 02/24/25 11:48 Sodium Chloride 1,000 ml @ 150 mls/hr Q6H40M ONCE IV 02/24/25 11:45 02/24/25 18:24 02/24/25 11:48 Patient alert. Complaining of abdominal pain. Vitals stable. Answering all questions. Blood sugar elevated. WBC elevated. Hemoglobin elevated. Blood pressure elevated. Was given labetalol. Establish intravenous access. Was given fluids. Possible sepsis. Was given Zosyn. Was given Flagyl. Explained to the patient. Continue to monitor. Time of 1ST Reevaluation: 10:40 Reevaluation 1ST: Unchanged Patient Education/Counseling: Diagnosis, Treatment, Prognosis Family Education/Counseling: No Family Present SEPSIS Sepsis Screen Date sepsis recognized/suspect: Feb 24, 2025 Time Sepsis recognized/suspect: 1049 Recent Procedure: No On Antibiotic Therapy: No Respiratory Rate >20: No Heart Rate >90: Yes Temp<36 C (96.8 F) or >38.3 C: No SBP <90 or MAP <65 mmHG: No New Acute Mental Status Change: No Is the patient on CPAP, BIPAP,: No Physician Orders Chest Portable (02/24/25 10:13) Ct Ab Pel Wo Con-No Oral Or Iv (02/24/25 10:13) Blood Culture (02/24/25 11:32) Lactic Acid W/ Reflex Order (02/24/25 11:32) Levofloxacin 500mg (Levaquin 500mg/ 100m (02/24/25 11:45) Metronidazole 500mg/100ml (Flagyl 500mg/ (02/24/25 11:45) Sodium Chloride 0.9% (02/24/25 11:45) Sodium Chloride 0.9% (02/24/25 11:45) Ngt/Ogt (02/24/25 ) * Surgical Consult (02/24/25 ) Vital Signs Date Time Temp Pulse Resp B/P (MAP) Pulse Ox O2 Delivery O2 Flow Rate FiO2 02/24/25 10:46 Room Air* 0 21 02/24/25 10:43 104 16 96 Room Air* 0 21 02/24/25 10:41 98.4 104 18 175/80 (111) 95 98.4 02/24/25 10:13 98.0 103 18 190/90 (123) 93 98.0 Laboratory Tests Test 02/24/25 10:30 02/24/25 11:32 White Blood Count 15.0 10^3/uL (4.4-10.8) H Lactic Acid Level Pending Medications Medications Dose Ordered Sig/Heather Route Start Time Stop Time Status Last Admin Dose Admin Levofloxacin/ Dextrose 100 ml @ 100 mls/hr ONCE ONCE IV 02/24/25 11:45 02/24/25 12:44 02/24/25 11:48 Metronidazole 100 ml @ 100 mls/hr ONCE ONCE IV 02/24/25 11:45 02/24/25 12:44 02/24/25 11:48 Sodium Chloride 1,000 ml @ 150 mls/hr Q6H40M ONCE IV 02/24/25 11:45 02/24/25 18:24 02/24/25 11:48 Sodium Chloride 1,000 ml @ 2,000 mls/hr Q30M ONCE IV 02/24/25 11:45 02/24/25 12:14 02/24/25 11:48 Departure 1 Departure Time of Disposition: 11:31 Impression: Primary Impression: Small bowel obstruction Additional Impressions: Intractable abdominal pain Uncontrolled diabetes mellitus Qualified Codes: E13.65 - Other specified diabetes mellitus with hyperglycemia Hypertension Qualified Codes: I10 - Essential (primary) hypertension Sepsis Qualified Codes: A41.9 - Sepsis, unspecified organism Disposition: ADMITTED INPATIENT Admit to: Med Surg Condition: Guarded Critical Care Note Critical Care Time?: Yes (90 min-critical care time only) Critical care comment: Possible sepsis continue to monitor Stability Stability form required: No Heart Score Heart Score: Heart Score Response (Comments) Value History Slightly Suspicious 0 EKG Normal 0 Age >65 2 Risk Factors >3 or Hx ASHD 2 Troponin Normal limit 0 Total 4 I personally scribed for TEMI PARK MD ([email or web address]) on 02/24/25 at 10:54. Electronically submitted by Jd Alba ([email or web address]). TEMI PARK MD Feb 24, 2025 10:54
--- NOTE | 2025-02-24 10:56 | DVH ---
CLINICAL INFORMATION: Diffuse pain. TECHNIQUE: Axial CT images of the abdomen and pelvis were obtained without IV contrast. Coronal and s agittal reformatted images were obtained, reviewed, and stored. Evaluation of the parenchymal organs is limited without IV contrast. Evaluation of the bowel and mesentery is limited without oral contras t. All CT scans at this medical facility are performed using dose modulation techniques as appropriat e to a performed exam including the following: Automated exposure control was utilized; adjustment of the MA and/or KV according to patient size; and use of iterative reconstruction technique. CTDIvol = 17.92 mGy DLP = 880.56 mGy-cm COMPARISON: CT CT AB PEL WO CON-NO ORAL OR IV on DOS: 05/15/23, CT ABD PELVIS WO CONTRAST on DOS: 06/23 05/13 FINDINGS: Lung bases: Atelectasis in the lung bases. Calcified granuloma in the right lower lobe. Liver: Grossly unremarkable in its noncontrast enhanced appearance. No abnormal density or focal lesi on identified. Biliary: Cholecystectomy. Spleen: Unremarkable. Pancreas: Grossly unremarkable in its noncontrast enhanced appearance. Adrenal glands: Unremarkable. No mass. Kidneys: No hydronephrosis. No renal or ureteral calculi. Aorta/Vascular: No aneurysm or significant calcification. Retroperitoneum: No mass or lymphadenopathy. Bowel/mesentery: Dilated fluid-filled small bowel loops with transition from dilated to nondilated sm all bowel at the level of a large right spigelian hernia. Appendix is not visualized. Scattered colon ic diverticula without adjacent inflammatory changes to suggest diverticulitis. Pelvic organs: Uterus is surgically absent. Bladder: Small calculus in the posterior bladder. Abdominal wall: Large right spigelian hernia measuring up to 15.6 x 12.3 x 15.5 cm containing loops o f large and small bowel with suspected small-bowel obstruction at the hernia site. Bones: No acute fracture or suspicious intraosseous lesion. IMPRESSION: 1. Large right spigelian hernia containing loops of large and small bowel with associated small bowel obstruction as detailed above. 2. Additional nonacute findings as described above.
[2025-02-24 10:59] LABS: Alanine Aminotransferase 34 U/L (7-40); Alkaline Phosphatase 73 U/L (46-116); Anion Gap 12 (5-15); BUN/Creatinine Ratio 15.7 (10.0-20.0); Blood Urea Nitrogen 16 mg/dL (9-23); Calcium 10.3 mg/dL (8.7-10.4); Carbon Dioxide 24 mmol/L (20-31); Chloride 107 mmol/L (98-107); Potassium 3.9 mmol/L (3.5-5.1); Sodium 143 mmol/L (136-145); Total Protein 7.7 g/dL (5.7-8.2)
[2025-02-24 11:00] LABS: Bilirubin, Total 0.5 mg/dL (0.2-1.0)
[2025-02-24 11:03] LABS: Albumin 5.2 g/dL (3.2-4.8); Glucose 203 mg/dL (74-106)
[2025-02-24] MEDS: SODIUM CHLORIDE 0.9% 1,000 ML IV ONE ×2 (11:48)
[2025-02-24 11:51] LABS: Urine Protein, UAD 1+ (Negative)
[2025-02-24 13:08] LABS: Lactic Acid w/Reflex 2.4 mmol/L (0.4-2.0)
--- NOTE | 2025-02-24 13:22 | DVH ---
XY CHEST PORTABLE, HISTORY: NGT PLACEMENT COMPARISON: XY CHEST PORTABLE on DOS: 02/24/25, XY CHEST XRAY 1 VIEW on DOS: 05/15/23, XY CHEST PORTABLE on DOS: 05/15/23 XY CHEST PORTABLE on DOS: 02/24/25, XY CHEST XRAY 1 VIEW on DOS: 05/15/23, XY CHEST PORTABLE on DOS: 04/23 12/12 TECHNICAL DATA: 1 view of the chest was obtained. FINDINGS: Lines and tubes: NG appears looped in the distal esophagus. Cardiomediastinal silhouette: normal Pulmonary vasculature: normal Lung expansion: normal Lung airspace: Similar right basilar pulmonary nodule. Lung interstitium: normal Pleura: normal Pneumothorax: no Bones: Unremarkable Other: no IMPRESSION: NG appears looped in the distal esophagus.
[2025-02-24] MEDS ORDERED: PANTOPRAZOLE 40 MG/10 ML VIAL INJ IV ONE (15:15)
[2025-02-24] MEDS ORDERED: SITA25TA3 PO (15:18)
--- NOTE | 2025-02-24 15:23 | DVHHP2 ---
History of Present Illness Reason for Visit: Abdominal pain History of Present Illness A 79-year-old female with past medical history significant for intestinal abdominal blockages, ventral hernia, COPD, hypertension, DM2, and former tobacco use presents to the emergency department with complaint of abdominal pain that began yesterday. The pain is associated with nausea and multiple episodes of vomiting. She denies fever, hematemesis, with changes in bowel habits. A CT scan of abdomen and pelvis revealed a large right-sided Spigelian hernia containing loops of both large and small bowel, with findings consistent with a small-bowel obstruction. A chest x-ray demonstrated a left basilar opacity and a right pulmonary nodule. Laboratory evaluation was notable for leukocytosis with a WBC of 15 and an elevated lactic acid of 2.4. Past Medical History As stated in HPI Past Surgical History Appendectomy Family History Reviewed, non-contributory to the management of this case. Past Social History The patient lives at home, denies smoking, alcohol or illicit drugs abuse. Review of Systems Constitutional: Yes: Malaise; No: Fever, Chills, Sweats, Weakness, Other Eyes: No: Pain, Vision change, Conjunctivae inflammation, Eyelid inflammation, Other, Redness ENT: No: Ear pain, Ear discharge, Nose pain, Nose discharge, Nose congestion, Mouth pain, Mouth swelling, Throat pain, Throat swelling, Other Respiratory: No: Cough, Dry, Shortness of breath, SOB with excertion, Wheezing, Hemoptysis, Pleuritic Pain, Sputum, Wheezing, Other Cardiovascular: No: Chest Pain, Palpitations, Orthopnea, Paroxysmal Noc. Dyspnea, Edema, Lt Headedness, Other Gastrointestinal: Nausea, Vomiting, Abdominal Pain; No: Diarrhea, Constipation, Melena, Hematochezia, Other Genitourinary: No Dysuria, No Frequency, No Incontinence, No Hematuria, No Retention, No Other Musculoskeletal: No: other, neck pain, shoulder pain, arm pain, back pain, hand pain, leg pain, foot pain Skin: No: Rash, Lesions, Jaundice, Bruising, Other Neurological: No: Weakness, Numbness, Incoordination, Change in speech, Confusion, Seizures, Other Allergies: Coded Allergies: Acetaminophen (Verified Allergy, Unknown, 07/20/22) Azithromycin (Verified Allergy, Unknown, 07/20/22) Hydrocodone (Verified Allergy, Unknown, 07/20/22) Metoclopramide (Verified Allergy, Unknown, 07/20/22) Penicillins (Verified Allergy, Unknown, 07/20/22) Sulfa Antibiotics (Verified Allergy, Unknown, 07/20/22) Exam Vital Signs Vital Signs Date Time Temp Pulse Resp B/P (MAP) Pulse Ox O2 Delivery O2 Flow Rate FiO2 02/24/25 14:40 98.5 102 18 168/75 (106) 96 98.5 02/24/25 10:46 Room Air* 0 21 General Appearance: Alert, Oriented X3, mild distress HEENT: Atraumatic, PERRLA, EOMI, Mucous membr. moist/pink Respiratory: Clear to auscultation, Normal air movement Cardiovascular: Regular rate, Normal S1, No murmurs Abdominal: Normal bowel sounds, Other (Generalized tenderness in palpation. NG tube to low intermittent suction) Skin: No rashes, No breakdown, No significant lesion Neuro: Normal speech, Normal tone Psych/Mental Status: Mental status NL Labs/Xrays Labs Test 02/24/25 11:32 02/24/25 11:30 02/24/25 10:30 Range/Units Lactic Acid Level 2.4 *H 0.4-2.0 mmol/L Urine Color Light-yellow Yellow Urine Clarity Clear Clear Urine pH 6.5 5.0-9.0 Urine Specific [place] 1.018 1.001-1.035 Urine Protein 1+ H Negative Urine Ketones 2+ H Negative Urine Blood Negative Negative /uL Urine Nitrite Negative Negative Urine Bilirubin Negative Negative Urine Urobilinogen Normal Negative mg/dL Urine Leukocyte Esterase Negative Negative /uL Urine RBC 8 0 - 4 /hpf Urine Microscopic WBC 2 0-5 /HPF Urine Squamous Epithelial Cells Few <5 /hpf Urine Bacteria None seen None Seen /hpf Urine Glucose Trace Normal mg/dL White Blood Count 15.0 H 4.4-10.8 10^3/uL Red Blood Count 5.77 H 4.0-5.20 10^6/uL Hemoglobin 17.1 H 12.2-16.2 g/dL Hematocrit 51.2 H 36.0-46.0 % Mean Corpuscular Volume 88.6 80.0-100.0 fL Mean Corpuscular Hemoglobin 29.6 28.0-32.0 pg Mean Corpuscular Hemoglobin Concent 33.4 32.0-36.0 g/dL Red Cell Distribution Width 14.3 11.8-14.3 % Platelet Count 157 140-450 10^3/uL Mean Platelet Volume 8.5 6.9-10.8 fL Neutrophils (%) (Auto) 89.6 H 37.0-80.0 % Lymphocytes (%) (Auto) 7.4 L 10.0-50.0 % Monocytes (%) (Auto) 2.5 0.0-12.0 % Eosinophils (%) (Auto) 0.0 0.0-7.0 % Basophils (%) (Auto) 0.5 0.0-2.0 % Neutrophils # (Auto) 13.4 H 1.6-8.6 10 ^3/uL Lymphocytes # (Auto) 1.1 0.4-5.4 10 ^3/uL Monocytes # (Auto) 0.4 0-1.3 10 ^3/uL Eosinophils # (Auto) 0 0-0.8 10 ^3/uL Basophils # (Auto) 0.1 0-0.2 10 ^3/uL Nucleated Red Blood Cells 0.1 % Sodium Level 143 136-145 mmol/L Potassium Level 3.9 3.5-5.1 mmol/L Chloride Level 107 98-107 mmol/L Carbon Dioxide Level 24 20-31 mmol/L Anion Gap 12 5-15 Blood Urea Nitrogen 16 9-23 mg/dL Creatinine 1.02 0.550-1.02 mg/dL Glomerular Filtration Rate Calc 57 >90 mL/min BUN/Creatinine Ratio 15.7 10.0-20.0 Serum Glucose 203 H 74-106 mg/dL Calcium Level 10.3 8.7-10.4 mg/dL Total Bilirubin 0.5 0.2-1.0 mg/dL Aspartate Amino Transferase (AST) 28 13-40 U/L Alanine Aminotransferase (ALT) 34 7-40 U/L Alkaline Phosphatase 73 46-116 U/L Troponin I High Sensitivity 6 </=34 ng/L Total Protein 7.7 5.7-8.2 g/dL Albumin 5.2 H 3.2-4.8 g/dL PROCEDURE(s): ABPL - CT AB PEL WO CON-NO ORAL OR IV REASON: diffusepain ORDER NUMBER(s): [id number], ACCESSION NUMBER(s): [id number] CLINICAL INFORMATION: Diffuse pain. TECHNIQUE: Axial CT images of the abdomen and pelvis were obtained without IV contrast. Coronal and sagittal reformatted images were obtained, reviewed, and stored. Evaluation of the parenchymal organs is limited without IV contrast. Evaluation of the bowel and mesentery is limited without oral contrast. All CT scans at this medical facility are performed using dose modulation techniques as appropriate to a performed exam including the following: Automated exposure control was utilized; adjustment of the MA and/or KV according to patient size; and use of iterative reconstruction technique. CTDIvol = 17.92 mGy DLP = 880.56 mGy-cm COMPARISON: CT CT AB PEL WO CON-NO ORAL OR IV on DOS: 05/15/23, CT ABD PELVIS WO CONTRAST on DOS: 07/20/22 FINDINGS: Lung bases: Atelectasis in the lung bases. Calcified granuloma in the right lower lobe. Liver: Grossly unremarkable in its noncontrast enhanced appearance. No abnormal density or focal lesion identified. Biliary: Cholecystectomy. Spleen: Unremarkable. Pancreas: Grossly unremarkable in its noncontrast enhanced appearance. Adrenal glands: Unremarkable. No mass. Kidneys: No hydronephrosis. No renal or ureteral calculi. Aorta/Vascular: No aneurysm or significant calcification. Retroperitoneum: No mass or lymphadenopathy. Bowel/mesentery: Dilated fluid-filled small bowel loops with transition from dilated to nondilated small bowel at the level of a large right spigelian hernia. Appendix is not visualized. Scattered colonic diverticula without adjacent inflammatory changes to suggest diverticulitis. Pelvic organs: Uterus is surgically absent. Bladder: Small calculus in the posterior bladder. Abdominal wall: Large right spigelian hernia measuring up to 15.6 x 12.3 x 15.5 cm containing loops of large and small bowel with suspected small-bowel obstruction at the hernia site. Bones: No acute fracture or suspicious intraosseous lesion. IMPRESSION: 1. Large right spigelian hernia containing loops of large and small bowel with associated small bowel obstruction as detailed above. 2. Additional nonacute findings as described above. PROCEDURE(s): CXRP - CHEST PORTABLE REASON: sob ORDER NUMBER(s): [id number], ACCESSION NUMBER(s): [id number] XY CHEST PORTABLE, HISTORY: sob COMPARISON: XY CHEST XRAY 1 VIEW on DOS: 05/15/23, XY CHEST PORTABLE on DOS: 05/15/23, CXR1 on DOS: 07/22/22 XY CHEST XRAY 1 VIEW on DOS: 05/15/23, XY CHEST PORTABLE on DOS: 05/15/23, CXR1 on DOS: 07/22/22 TECHNICAL DATA: 1 view of the chest was obtained. FINDINGS: Lines and tubes: None Cardiomediastinal silhouette: normal Pulmonary vasculature: normal Lung expansion: normal Lung airspace: Similar right basilar pulmonary nodule. Patchy left basilar airspace opacity. Lung interstitium: normal Pleura: normal Pneumothorax: no Bones: Right shoulder and neck hardware is seen. Other: no IMPRESSION: Patchy left basilar airspace opacity. Similar right basilar pulmonary nodule. Assessment/Plan Assessment/Plan # Small Bowel Obstruction due to Spigelian Hernia # hx of intestinal blockages # hx of Ventral hernias * Admit to Med.Surg unit * CT abdomen/pelvis shows large right spigelian hernia containing both small and large bowel with associated SBO * Elevated WBC and lactic acid suggest possible early strangulation or ischemia * Surgical consultation * NPO, IV fluid, electrolyte monitoring * NG tube for decompression # leukocytosis and lactic acidosis, likely reactive of bowel obstruction,?early ischemia # rule out sepsis * IV fluid resuscitation * Empiric antibiotic metronidazole and levofloxacin * Trend lactic acid * Monitor for evolving sepsis or ischemic bowel # COPD # hx of smoking #? Aspiration pneumonia vs. Chronic changes # pulmonary nodule, ? Incidental findings * Chest x-ray shows left basilar opacity and right pulmonary nodule * Levofloxacin * Consider CT chest for pulmonary nodule # hypertension * Continue with amlodipine and lisinopril * Monitor # diabetes type 2 # obesity * Continue with Januvia * Check A1c DVT/PPI prophylaxis Medical plan discussed with patient and RN Plan discussed with: Patient My Orders Orders - TRINITY HUMPHREYS DOCTOR OF PODIATRY Procedure Category Date Status Time Admit ADMIT 02/24/25 Transmitted 14:46 Code Status CODE 02/24/25 Transmitted 14:46 0.9% Ns 1000 Ml PHA 02/24/25 Transmitted 15:00 Ondansetron Hcl PHA 02/24/25 Transmitted (Zofran) 15:00 Enoxaparin Sodium PHA 02/25/25 Transmitted (Lovenox) 10:00 Fall Risk Precautions LISSETTE 02/24/[address] 14:46 Complete Blood Count LAB 02/25/25 Verified 04:00 Comprehensive LAB 02/25/25 Verified Metabolic Panel 04:00 Npo (Nothing By DIET 02/24/25 Transmitted Mouth) Diet Dinner Condition: Serious LISSETTE 02/24/25 Transmitted 14:46 Date of Service: Feb 24, 2025 Billing Provider: TRINITY HUMPHREYS Common Visit Codes: [id number] INP/OBS CARE (HIGH) Consultation Codes: [id number] CONSULT <45MIN TRINITY HUMPHREYS Feb 24, 2025 15:23
[2025-02-24] MEDS ORDERED: DEXTROSE (50%) 50ML SYRG IV PRN (15:30)
[2025-02-24] MEDS ORDERED: IPRATROPIUM BROM 0.5 MG/2.5ML INH SOL NEB PRN ×2 (15:30→15:45)
[2025-02-24] MEDS ORDERED: ALBUTEROL SULF 2.5 MG/0.5ML(0.5%) NEB SOLN NEB PRN ×2 (15:30→15:45)
[2025-02-24] MEDS: SODIUM CHLORIDE 0.9% 1,000 ML IV SCH (17:06)
[2025-02-24] MEDS: PANTOPRAZOLE 40 MG/10 ML VIAL INJ IV ONE (17:06)
[2025-02-24] MEDS: InsuLIN REG 1unit/0.01ml Soln (100units/ml) SC SCH (18:00)
[2025-02-24] MEDS: ACCU-CHEK COMFORT CURVE STRIP VI SCH (18:07)
[2025-02-24] MEDS: ONDANSETRON HCL 4 MG/2 ML VIAL IV PRN (18:21)
--- NOTE | 2025-02-24 18:53 | DVHINCON2 ---
Date of service: Feb 24, 2025 Family History: Diabetes mellitus G8 MOTHER, FH: alcohol abuse Hypertension G8 FATHER, Allergies: Coded Allergies: Acetaminophen (Verified Allergy, Unknown, 07/20/22) Azithromycin (Verified Allergy, Unknown, 07/20/22) Hydrocodone (Verified Allergy, Unknown, 07/20/22) Metoclopramide (Verified Allergy, Unknown, 07/20/22) Penicillins (Verified Allergy, Unknown, 07/20/22) Sulfa Antibiotics (Verified Allergy, Unknown, 07/20/22) Home Meds Active Scripts Levofloxacin Hemihydrate (LEVAQUIN 500 MG) 500 Mg Tab, 1 TAB PO DAILY, #7 TAB Prov:JACEK ESPANA MD 05/23/23 Metronidazole (Metronidazole) 500 Mg Tab, 500 MG PO TID, #21 TAB Prov:JACEK ESPANA MD 05/23/23 Metronidazole (Flagyl) 500 Mg Tab, 500 MG PO TID, #21 TAB Prov:JACEK ESPANA MD 07/24/22 Levofloxacin (Levaquin) 500 Mg Tab, 500 MG PO DAILY, #7 TAB Prov:JACEK ESPANA MD 07/24/22 Reported Medications Sitagliptin Phosphate (Januvia) 25 Mg Tab, 1 TAB PO DAILY 02/24/25 Fluticasone-Salmeterol (Advair Diskus 100-50 Mcg/Dose) 1 Aer Aer, 1 PUFF INH BID 07/21/22 Fluticasone Propionate (Nasal) (Fluticasone Propionate) 50 Mcg/Act Spr, 1 SPRAY CARO DAILYPRN 07/21/22 Lisinopril (Lisinopril) 5 Mg Tab, 1 TAB PO DAILYPRN 07/21/22 Sertraline Hcl (Sertraline Hcl) 100 Mg Tab, 1 TAB PO DAILYPRN 07/21/22 Amlodipine Besylate (Amlodipine Besylate) 5 Mg Tab, 1 TAB PO DAILYPRN 07/21/22 Current Medications Current Medications Medications (Trade) Dose Ordered Sig/Heather Route PRN Reason Start Time Stop Time Status Last Admin Sodium Chloride 1,000 ml @ 60 mls/hr [id number] IV 02/24/25 15:00 02/24/25 17:06 Ondansetron HCl (Zofran) 4 mg Q4HP PRN IV NAUSEA / VOMITING 02/24/25 15:00 02/24/25 18:21 Enoxaparin Sodium (Lovenox) 40 mg DAILY SC 02/25/25 10:00 Metronidazole 100 ml @ 100 mls/hr Q8HR IV 02/24/25 22:00 02/24/25 15:19 DC Levofloxacin/ Dextrose 100 ml @ 100 mls/hr DAILY IV 02/25/25 10:00 02/24/25 15:19 DC Amlodipine Besylate (Norvasc Tablet) 5 mg DAILYPRN PO 02/25/25 10:00 02/24/25 15:19 DC Lisinopril (Zestril Tablet) 5 mg DAILYPRN PO 02/25/25 10:00 02/24/25 15:19 DC Pantoprazole Sodium (Protonix) 40 mg DAILY IV 02/25/25 10:00 02/24/25 15:19 DC Albuterol (Ventolin Medneb) 2.5 mg Q4HPRN PRN NEB SHORTNESS OF BREATH 02/24/25 15:30 02/24/25 15:19 DC Ipratropium [place] (Atrovent Medneb) 0.5 mg Q4HPRN PRN NEB SHORTNESS OF BREATH 02/24/25 15:30 02/24/25 15:19 DC Patient Own Medication 1 tab DAILY PO 02/25/25 10:00 Diagnostic Test (Pha) (Accu-Chek Comfort Curve T) 1 strip Q6HR 02/24/25 18:00 02/24/25 18:07 Insulin Human Regular (InsuLIN R) Q6HR SC 02/24/25 18:00 Dextrose 50 ml UD PRN IV Blood Sugar LESS THAN 60 02/24/25 15:30 Ipratropium [place] (Atrovent Medneb) 0.5 mg Q4HPRN PRN NEB SHORTNESS OF BREATH 02/24/25 15:45 Pantoprazole Sodium (Protonix) 40 mg DAILY IV 02/25/25 10:00 Metronidazole 100 ml @ 100 mls/hr Q8HR IV 02/24/25 22:00 Levofloxacin/ Dextrose 100 ml @ 100 mls/hr DAILY IV 02/25/25 10:00 UNV Amlodipine Besylate (Norvasc Tablet) 5 mg DAILYPRN PO 02/25/25 10:00 Lisinopril (Zestril Tablet) 5 mg DAILYPRN PO 02/25/25 10:00 Albuterol (Ventolin Medneb) 2.5 mg Q4HPRN PRN NEB SHORTNESS OF BREATH 02/24/25 15:45 Levofloxacin 50 ml @ 50 mls/hr DAILY IV 02/25/25 10:00 Vital Signs Vital Signs Date Time Temp Pulse Resp B/P (MAP) Pulse Ox O2 Delivery O2 Flow Rate FiO2 02/24/25 18:30 98.3 108 18 188/90 (122) 93 98.3 02/24/25 17:46 Room Air* 0 21 Labs/Diagnostic Data Labs Test 02/24/25 15:00 02/24/25 11:30 02/24/25 10:30 Range/Units Lactic Acid Level 1.8 0.4-2.0 mmol/L Urine Color Light-yellow Yellow Urine Clarity Clear Clear Urine pH 6.5 5.0-9.0 Urine Specific [place] 1.018 1.001-1.035 Urine Protein 1+ H Negative Urine Ketones 2+ H Negative Urine Blood Negative Negative /uL Urine Nitrite Negative Negative Urine Bilirubin Negative Negative Urine Urobilinogen Normal Negative mg/dL Urine Leukocyte Esterase Negative Negative /uL Urine RBC 8 0 - 4 /hpf Urine Microscopic WBC 2 0-5 /HPF Urine Squamous Epithelial Cells Few <5 /hpf Urine Bacteria None seen None Seen /hpf Urine Glucose Trace Normal mg/dL White Blood Count 15.0 H 4.4-10.8 10^3/uL Red Blood Count 5.77 H 4.0-5.20 10^6/uL Hemoglobin 17.1 H 12.2-16.2 g/dL Hematocrit 51.2 H 36.0-46.0 % Mean Corpuscular Volume 88.6 80.0-100.0 fL Mean Corpuscular Hemoglobin 29.6 28.0-32.0 pg Mean Corpuscular Hemoglobin Concent 33.4 32.0-36.0 g/dL Red Cell Distribution Width 14.3 11.8-14.3 % Platelet Count 157 140-450 10^3/uL Mean Platelet Volume 8.5 6.9-10.8 fL Neutrophils (%) (Auto) 89.6 H 37.0-80.0 % Lymphocytes (%) (Auto) 7.4 L 10.0-50.0 % Monocytes (%) (Auto) 2.5 0.0-12.0 % Eosinophils (%) (Auto) 0.0 0.0-7.0 % Basophils (%) (Auto) 0.5 0.0-2.0 % Neutrophils # (Auto) 13.4 H 1.6-8.6 10 ^3/uL Lymphocytes # (Auto) 1.1 0.4-5.4 10 ^3/uL Monocytes # (Auto) 0.4 0-1.3 10 ^3/uL Eosinophils # (Auto) 0 0-0.8 10 ^3/uL Basophils # (Auto) 0.1 0-0.2 10 ^3/uL Nucleated Red Blood Cells 0.1 % Sodium Level 143 136-145 mmol/L Potassium Level 3.9 3.5-5.1 mmol/L Chloride Level 107 98-107 mmol/L Carbon Dioxide Level 24 20-31 mmol/L Anion Gap 12 5-15 Blood Urea Nitrogen 16 9-23 mg/dL Creatinine 1.02 0.550-1.02 mg/dL Glomerular Filtration Rate Calc 57 >90 mL/min BUN/Creatinine Ratio 15.7 10.0-20.0 Serum Glucose 203 H 74-106 mg/dL Hemoglobin A1c 6.0 H <5.7 % A1C Calcium Level 10.3 8.7-10.4 mg/dL Total Bilirubin 0.5 0.2-1.0 mg/dL Aspartate Amino Transferase (AST) 28 13-40 U/L Alanine Aminotransferase (ALT) 34 7-40 U/L Alkaline Phosphatase 73 46-116 U/L Troponin I High Sensitivity 6 </=34 ng/L Total Protein 7.7 5.7-8.2 g/dL Albumin 5.2 H 3.2-4.8 g/dL Assessment [id number] AFEBRILE VSS ABD SOFT NON ACUTE RLQ POST INCISIONAL VENTRAL INCARCERATED HERNIA R/O SBO ATTEMPT MANUAL REDUCTION KEEP NPO NG CONSIDER EMERGENT SURGERY BASED ON ONGOING EVAL ICE PACK ABD BINDER Plan discussed with: Patient JAMES DANIELS MD Feb 24, 2025 18:53
--- NOTE | 2025-02-24 19:04 | DVHINCON2 ---
DATE OF CONSULTATION: 02/24/2025 HISTORY OF PRESENT ILLNESS: She is 79 years old, coming in with abdominal pain, nausea with vomiting. She had bowel movement yesterday. No hematuria, melena, or bleeding per rectum. PAST MEDICAL HISTORY: COPD, hypertension, and pulmonary insufficiency, possibly from tobacco use. PAST SURGICAL HISTORY: Appendectomy, presumably was open appendectomy. Details are not clear. PHYSICAL EXAMINATION: VITAL SIGNS: Afebrile. Stable signs. HEENT: With no evidence of pallor, cyanosis or jaundice. NECK: Supple. There is no thyromegaly or lymphadenopathy. CHEST AND LUNGS: Clear. HEART: Within normal limits. ABDOMEN: Soft. She has a very large post incisional right lower quadrant abdominal wall hernia with the possibility of bowel obstruction, but does not have an acute abdomen and rule out small bowel obstruction. EXTREMITIES: Unremarkable. NEUROLOGIC: Intact. CLINICAL IMPRESSION: Abdominal wall right lower quadrant post-incisional ventral hernia which containing loops of large and small bowel with possibility of small bowel obstruction. PLAN: At this time, the plan would be to consider manual reduction and then if successful, then plan emergent or elective surgery based upon ongoing evaluation. Continue the conservative management for now. Keep her n.p.o., NG suctioning, abdominal binder, ice pack, and then consider surgery based upon ongoing evaluation and medication. MD CORIE Warner/KARLA TID: [id number] RECEIPT: [id number] cc: YVONNE Murillo
--- NOTE | 2025-02-24 19:34 | DVH ---
EXAM: XY CHEST XRAY 1 VIEW TECHNIQUE: Single frontal chest radiograph CLINICAL HISTORY: confirm NG tube placement COMPARISON: XY CHEST PORTABLE on DOS: 02/24/25, XY CHEST PORTABLE on DOS: 02/24/25, XY CHEST XRAY 1 VIEW on DOS: 05/15/23 Findings/Impression: Frontal chest radiograph demonstrates no acute osseous or superficial soft tissue abnormalities. Enteric tube is overlying the plane of the stomach. The trachea is midline. The cardiac silhouette and mediastinum are within normal limits. Unchanged right lower lung field pulmonary nodule versus granuloma. No pneumothorax, pleural effusions, or consolidations.
[2025-02-24] MEDS ORDERED: GABA-1308 PO (19:43)
[2025-02-25] VITALS (10 sets, daily range): BP systolic 105–159; BP diastolic 57–79; PULSE 76–94; RESP 16–18; TEMP 97.7–99.3; O2SAT 91–93
[2025-02-25] MEDS ORDERED: PANT40T PO (05:22)
[2025-02-25] MEDS ORDERED: LISI10TA34 PO (05:22)
[2025-02-25] MEDS ORDERED: FLUO-470 PO (05:22)
[2025-02-25 06:50] LABS: Hematocrit 42.2 % (36.0-46.0); Hemoglobin 14.3 g/dL (12.2-16.2); Mean Corpuscular Hemoglobin 29.6 pg (28.0-32.0); Mean Corpuscular Volume 87.6 fL (80.0-100.0); Nucleated Red Blood Cells % 0.2 %
[2025-02-25 07:19] LABS: Alanine Aminotransferase 24 U/L (7-40); Alkaline Phosphatase 52 U/L (46-116); Anion Gap 10 (5-15); BUN/Creatinine Ratio 15.1 (10.0-20.0); Blood Urea Nitrogen 13 mg/dL (9-23); Calcium 9.1 mg/dL (8.7-10.4); Carbon Dioxide 22 mmol/L (20-31); Potassium 3.9 mmol/L (3.5-5.1); Total Protein 5.9 g/dL (5.7-8.2)
[2025-02-25 07:20] LABS: Albumin 4.0 g/dL (3.2-4.8); Bilirubin, Total 0.4 mg/dL (0.2-1.0)
[2025-02-25 07:23] LABS: Chloride 114 mmol/L (98-107); Glucose 128 mg/dL (74-106); Sodium 146 mmol/L (136-145)
[2025-02-25] MEDS ORDERED: LISINOPRIL 5 MG TAB PO SCH ×2 (10:00)
[2025-02-25] MEDS ORDERED: PANTOPRAZOLE 40 MG/10 ML VIAL INJ IV SCH (10:00)
[2025-02-25] MEDS: LISINOPRIL 5 MG TAB PO SCH (10:03)
[2025-02-25] MEDS: PANTOPRAZOLE 40 MG/10 ML VIAL INJ IV SCH (10:03)
[2025-02-25] MEDS: Sitagliptin Phosphate (Januvia) 25 MG TABLET PO SCH (10:09)
[2025-02-25] MEDS: ENOXAPARIN SOD 40 MG/0.4 ML SYRINGE SC SCH (11:45)
--- NOTE | 2025-02-25 11:58 | DVHPN2 ---
Reviewed: Care Plan, H&P, Labs, Medications, Previous Orders, Radiology Changes from previous H/P or p: No Changes Eyes: No Pain, No Vision change, No Conjunctivae inflammation, No Eyelid inflammation, No Other, No Redness ENT: No Ear pain, No Ear discharge, No Nose pain, No Nose discharge, No Nose congestion, No Mouth pain, No Mouth swelling, No Throat pain, No Throat swelling, No Other Cardiovascular: No Chest Pain, No Palpitations, No Orthopnea, No Paroxysmal Noc. Dyspnea, No Edema, No Lt Headedness, No Other Respiratory: No Cough, No Dry, No Shortness of breath, No SOB with excertion, No Wheezing, No Hemoptysis, No Pleuritic Pain, No Sputum, No Other Gastrointestinal: Nausea, Vomiting, Abdominal Pain; No Diarrhea, No Constipation, No Melena, No Hematochezia, No Other Genitourinary: No Dysuria, No Frequency, No Incontinence, No Hematuria, No Retention, No Other Musculoskeletal: No other, No neck pain, No shoulder pain, No arm pain, No back pain, No hand pain, No leg pain, No foot pain Skin: No Rash, No Lesions, No Jaundice, No Bruising, No Other Objective Vitals Vital Signs Date Time Temp Pulse Resp B/P (MAP) Pulse Ox O2 Delivery O2 Flow Rate FiO2 02/25/25 10:03 139/64 02/25/25 08:30 97.7 80 18 92 97.7 02/25/25 08:00 Room Air* 0 21 Intake/Output Intake and Output 02/25/25 07:00 Intake Total 860 ml Balance 860 ml Intake Oral 0 ml IV Total 860 ml # Voids 1 Medications Current Medications Medications Dose Ordered Sig/Heather Route Start Time Stop Time Status Last Admin Dose Admin Sodium Chloride 1,000 ml @ 60 mls/hr [id number] IV 02/24/25 15:00 02/25/25 09:57 60 MLS/HR Ondansetron HCl 4 mg Q4HP PRN IV 02/24/25 15:00 02/24/25 18:21 4 MG Enoxaparin Sodium 40 mg DAILY SC 02/25/25 10:00 02/25/25 11:45 40 MG Patient Own Medication 1 tab DAILY PO 02/25/25 10:00 02/25/25 10:09 1 TAB Diagnostic Test (Pha) 1 strip Q6HR 02/24/25 18:00 02/25/25 11:45 1 STRIP Insulin Human Regular Q6HR SC 02/24/25 18:00 Dextrose 50 ml UD PRN IV 02/24/25 15:30 Ipratropium [place] 0.5 mg Q4HPRN PRN NEB 02/24/25 15:45 Pantoprazole Sodium 40 mg DAILY IV 02/25/25 10:00 02/25/25 10:03 40 MG Metronidazole 100 ml @ 100 mls/hr Q8HR IV 02/24/25 22:00 02/25/25 05:08 100 MLS/HR Levofloxacin/ Dextrose 100 ml @ 100 mls/hr DAILY IV 02/25/25 10:00 UNV Albuterol 2.5 mg Q4HPRN PRN NEB 02/24/25 15:45 Levofloxacin 50 ml @ 50 mls/hr DAILY IV 02/25/25 10:00 02/25/25 09:58 50 MLS/HR Amlodipine Besylate 5 mg DAILY PO 02/25/25 10:00 02/25/25 10:02 5 MG Lisinopril 5 mg DAILY PO 02/25/25 10:00 02/25/25 10:03 5 MG Laboratory Results Laboratory Tests 02/25/25 05:51 Chemistry Test 02/25/25 05:51 Albumin 4.0 g/dL (3.2-4.8) Calcium Level 9.1 mg/dL (8.7-10.4) Total Protein 5.9 g/dL (5.7-8.2) LFT Test 02/25/25 05:51 Alanine Aminotransferase (ALT) 24 U/L (7-40) Alkaline Phosphatase 52 U/L (46-116) Aspartate Amino Transferase (AST) 26 U/L (13-40) Total Bilirubin 0.4 mg/dL (0.2-1.0) Urinalysis Test 02/24/25 11:30 Urine Color Light-yellow (Yellow) Urine Clarity Clear (Clear) Urine pH 6.5 (5.0-9.0) Urine Specific [place] 1.018 (1.001-1.035) Urine Protein 1+ (Negative) H Urine Ketones 2+ (Negative) H Urine Blood Negative /uL (Negative) Urine Nitrite Negative (Negative) Urine Bilirubin Negative (Negative) Urine Urobilinogen Normal mg/dL (Negative) Urine Leukocyte Esterase Negative /uL (Negative) Urine RBC 8 /hpf (0 - 4) Urine Microscopic WBC 2 /HPF (0-5) Urine Squamous Epithelial Cells Few /hpf (<5) Urine Bacteria None seen /hpf (None Seen) Urine Glucose Trace mg/dL (Normal) Labs and/or images reviewed: Labs reviewed by me, Image(s) reviewed by me Assessment/Plan Assessment/Plan Acute small bowel obstruction due to Spigelian hernia History of ventral hernias Sepsis secondary to small-bowel obstruction Levaquin Flagyl, surgical consult by Dr. Taurus Christianson appreciated COPD History of smoking Possible aspiration pneumonia Hypertension Type 2 diabetes Obesity Time spent 70 minutes Advanced care planning time 20 minutes Patient is full code Plan discussed with: Patient Date of Service: Feb 25, 2025 Billing Provider: JACEK ESPANA MD Common Visit Codes: [id number] CARE 30-74 MIN JACEK ESPANA MD Feb 25, 2025 11:58
--- NOTE | 2025-02-25 15:36 | DVHPN2 ---
Progress Note Date Seen: Feb 25, 2025 Medical Necessity Reason Pt with a Central, PICC or Fol: No Objective vital signs Vital Sign Date Time Temp Pulse Resp B/P (MAP) Pulse Ox O2 Delivery O2 Flow Rate FiO2 02/25/25 12:34 97.9 76 16 130/70 (90) 93 97.9 02/25/25 08:00 Room Air* 0 21 Total Intake and Output 02/24/25 02/24/25 02/25/25 15:00 23:00 07:00 Intake Total 100 ml 760 ml Balance 100 ml 760 ml medications Current Medications Medications Dose Ordered Sig/Heather Route Start Time Stop Time Status Last Admin Dose Admin Sodium Chloride 1,000 ml @ 60 mls/hr [id number] IV 02/24/25 15:00 02/25/25 09:57 60 MLS/HR Ondansetron HCl 4 mg Q4HP PRN IV 02/24/25 15:00 02/24/25 18:21 4 MG Enoxaparin Sodium 40 mg DAILY SC 02/25/25 10:00 02/25/25 11:45 40 MG Patient Own Medication 1 tab DAILY PO 02/25/25 10:00 02/25/25 10:09 1 TAB Diagnostic Test (Pha) 1 strip Q6HR 02/24/25 18:00 02/25/25 11:45 1 STRIP Insulin Human Regular Q6HR SC 02/24/25 18:00 Dextrose 50 ml UD PRN IV 02/24/25 15:30 Ipratropium [place] 0.5 mg Q4HPRN PRN NEB 02/24/25 15:45 Pantoprazole Sodium 40 mg DAILY IV 02/25/25 10:00 02/25/25 10:03 40 MG Metronidazole 100 ml @ 100 mls/hr Q8HR IV 02/24/25 22:00 02/25/25 13:22 100 MLS/HR Levofloxacin/ Dextrose 100 ml @ 100 mls/hr DAILY IV 02/25/25 10:00 UNV Albuterol 2.5 mg Q4HPRN PRN NEB 02/24/25 15:45 Levofloxacin 50 ml @ 50 mls/hr DAILY IV 02/25/25 10:00 02/25/25 09:58 50 MLS/HR Amlodipine Besylate 5 mg DAILY PO 02/25/25 10:00 02/25/25 10:02 5 MG Lisinopril 5 mg DAILY PO 02/25/25 10:00 02/25/25 10:03 5 MG laboratory and microbiology Laboratory Tests 02/25/25 05:51 Test 02/25/25 05:51 Range/Units Serum Glucose 128 H 74-106 mg/dL Microbiology Date/Time Source Procedure Growth Status 02/24/25 11:45 Blood Blood Culture - Preliminary NO GROWTH AFTER 24 HOURS OF INCUBATION. Resulted Problem List/Assessment/Plan Problem List/Assessment/Plan AFEBRILE VSS ABD SOFT INCARCERATED RLQ VENTRAL HERNIA REMAINS REDUCED NO BM FLATUS + R/O SBO GASTROGRAFIN STUDY NURSE AT BEDSIDE Plan discussed with: Patient JAMES DANIELS MD Feb 25, 2025 15:36
[2025-02-26] VITALS (11 sets, daily range): BP systolic 118–172; BP diastolic 54–94; PULSE 64–83; RESP 14–18; TEMP 97.4–98.7; O2SAT 90–95
--- NOTE | 2025-02-26 09:19 | DVHPN2 ---
Progress Note Date Seen: Feb 26, 2025 Medical Necessity Reason Pt with a Central, PICC or Fol: No Objective vital signs Vital Sign Date Time Temp Pulse Resp B/P (MAP) Pulse Ox O2 Delivery O2 Flow Rate FiO2 02/26/25 09:04 160/80 02/26/25 08:30 98.1 82 14 92 98.1 02/26/25 07:56 Room Air* 0 21 Total Intake and Output 02/25/25 02/25/25 02/26/25 15:00 23:00 07:00 Intake Total 390 ml 280 ml 860 ml Balance 390 ml 280 ml 860 ml medications Current Medications Medications Dose Ordered Sig/Heather Route Start Time Stop Time Status Last Admin Dose Admin Sodium Chloride 1,000 ml @ 60 mls/hr [id number] IV 02/24/25 15:00 02/26/25 05:38 60 MLS/HR Ondansetron HCl 4 mg Q4HP PRN IV 02/24/25 15:00 02/24/25 18:21 4 MG Enoxaparin Sodium 40 mg DAILY SC 02/25/25 10:00 02/26/25 09:05 40 MG Patient Own Medication 1 tab DAILY PO 02/25/25 10:00 02/25/25 10:09 1 TAB Diagnostic Test (Pha) 1 strip Q6HR 02/24/25 18:00 02/26/25 05:36 1 STRIP Insulin Human Regular Q6HR SC 02/24/25 18:00 Dextrose 50 ml UD PRN IV 02/24/25 15:30 Ipratropium [place] 0.5 mg Q4HPRN PRN NEB 02/24/25 15:45 Pantoprazole Sodium 40 mg DAILY IV 02/25/25 10:00 02/26/25 09:03 40 MG Metronidazole 100 ml @ 100 mls/hr Q8HR IV 02/24/25 22:00 02/26/25 05:35 100 MLS/HR Levofloxacin/ Dextrose 100 ml @ 100 mls/hr DAILY IV 02/25/25 10:00 UNV Albuterol 2.5 mg Q4HPRN PRN NEB 02/24/25 15:45 Levofloxacin 50 ml @ 50 mls/hr DAILY IV 02/25/25 10:00 02/26/25 09:04 50 MLS/HR Amlodipine Besylate 5 mg DAILY PO 02/25/25 10:00 02/26/25 09:04 5 MG Lisinopril 5 mg DAILY PO 02/25/25 10:00 02/26/25 09:04 5 MG laboratory and microbiology Laboratory Tests 02/25/25 05:51 Test 02/25/25 05:51 Range/Units Serum Glucose 128 H 74-106 mg/dL Microbiology Date/Time Source Procedure Growth Status 02/24/25 11:45 Blood Blood Culture - Preliminary NO GROWTH AFTER 24 HOURS OF INCUBATION. Resulted Problem List/Assessment/Plan Problem List/Assessment/Plan AFEBRILE VSS ABD SOFT INCARCERATED RLQ VENTRAL HERNIA REMAINS REDUCED NO BM FLATUS + R/O SBO GASTROGRAFIN STUDY PENDING NURSE AT BEDSIDE Plan discussed with: Patient My Orders My Orders Orders - JAMES DANIELS MD Procedure Category Date Status Time Small Bowel Series-W XY 02/26/25 Logged Gastrogra 07:00 JAMES DANIELS MD Feb 26, 2025 09:19
--- NOTE | 2025-02-26 12:01 | DVHPN2 ---
Reviewed: Care Plan, H&P, Labs, Medications, Previous Orders, Radiology Changes from previous H/P or p: No Changes Eyes: No Pain, No Vision change, No Conjunctivae inflammation, No Eyelid inflammation, No Other, No Redness ENT: No Ear pain, No Ear discharge, No Nose pain, No Nose discharge, No Nose congestion, No Mouth pain, No Mouth swelling, No Throat pain, No Throat swelling, No Other Cardiovascular: No Chest Pain, No Palpitations, No Orthopnea, No Paroxysmal Noc. Dyspnea, No Edema, No Lt Headedness, No Other Respiratory: No Cough, No Dry, No Shortness of breath, No SOB with excertion, No Wheezing, No Hemoptysis, No Pleuritic Pain, No Sputum, No Other Gastrointestinal: Nausea, Vomiting, Abdominal Pain; No Diarrhea, No Constipation, No Melena, No Hematochezia, No Other Genitourinary: No Dysuria, No Frequency, No Incontinence, No Hematuria, No Retention, No Other Musculoskeletal: No other, No neck pain, No shoulder pain, No arm pain, No back pain, No hand pain, No leg pain, No foot pain Skin: No Rash, No Lesions, No Jaundice, No Bruising, No Other Objective Vitals Vital Signs Date Time Temp Pulse Resp B/P (MAP) Pulse Ox O2 Delivery O2 Flow Rate FiO2 02/26/25 09:04 160/80 02/26/25 08:30 98.1 82 14 92 98.1 02/26/25 07:56 Room Air* 0 21 Intake/Output Intake and Output 02/26/25 07:00 Intake Total 1530 ml Balance 1530 ml Intake Oral 0 ml IV Total 1530 ml # Voids 6 Medications Current Medications Medications Dose Ordered Sig/Heather Route Start Time Stop Time Status Last Admin Dose Admin Sodium Chloride 1,000 ml @ 60 mls/hr [id number] IV 02/24/25 15:00 02/26/25 05:38 60 MLS/HR Ondansetron HCl 4 mg Q4HP PRN IV 02/24/25 15:00 02/24/25 18:21 4 MG Enoxaparin Sodium 40 mg DAILY SC 02/25/25 10:00 02/26/25 09:05 40 MG Patient Own Medication 1 tab DAILY PO 02/25/25 10:00 02/26/25 09:22 1 TAB Diagnostic Test (Pha) 1 strip Q6HR 02/24/25 18:00 02/26/25 11:53 1 STRIP Insulin Human Regular Q6HR SC 02/24/25 18:00 Dextrose 50 ml UD PRN IV 02/24/25 15:30 Ipratropium [place] 0.5 mg Q4HPRN PRN NEB 02/24/25 15:45 Pantoprazole Sodium 40 mg DAILY IV 02/25/25 10:00 02/26/25 09:03 40 MG Metronidazole 100 ml @ 100 mls/hr Q8HR IV 02/24/25 22:00 02/26/25 05:35 100 MLS/HR Levofloxacin/ Dextrose 100 ml @ 100 mls/hr DAILY IV 02/25/25 10:00 UNV Albuterol 2.5 mg Q4HPRN PRN NEB 02/24/25 15:45 Levofloxacin 50 ml @ 50 mls/hr DAILY IV 02/25/25 10:00 02/26/25 09:04 50 MLS/HR Amlodipine Besylate 5 mg DAILY PO 02/25/25 10:00 02/26/25 09:04 5 MG Lisinopril 5 mg DAILY PO 02/25/25 10:00 02/26/25 09:04 5 MG Laboratory Results Laboratory Tests 02/25/25 05:51 Urinalysis Test 02/24/25 11:30 Urine Color Light-yellow (Yellow) Urine Clarity Clear (Clear) Urine pH 6.5 (5.0-9.0) Urine Specific [place] 1.018 (1.001-1.035) Urine Protein 1+ (Negative) H Urine Ketones 2+ (Negative) H Urine Blood Negative /uL (Negative) Urine Nitrite Negative (Negative) Urine Bilirubin Negative (Negative) Urine Urobilinogen Normal mg/dL (Negative) Urine Leukocyte Esterase Negative /uL (Negative) Urine RBC 8 /hpf (0 - 4) Urine Microscopic WBC 2 /HPF (0-5) Urine Squamous Epithelial Cells Few /hpf (<5) Urine Bacteria None seen /hpf (None Seen) Urine Glucose Trace mg/dL (Normal) Microbiology Microbiology Date/Time Source Procedure Growth Status 02/24/25 11:45 Blood Blood Culture - Preliminary NO GROWTH AFTER 48 HOURS OF INCUBATION. 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 Taurus Christianson Gastrografin study pending History of ventral hernias Sepsis secondary to small-bowel obstruction Levaquin Flagyl, COPD History of smoking Possible aspiration pneumonia Hypertension Type 2 diabetes Obesity Time spent 50 minutes Advanced care planning time 20 minutes Patient is full code Plan discussed with: Patient My Orders Orders - JACEK ESPANA MD Procedure Category Date Status Time Npo Except For [facility] 02/25/25 In Process Medications 12:01 Date of Service: Feb 26, 2025 Billing Provider: JACEK ESPANA MD Common Visit Codes: [id number] INP/OBS CARE(HIGH) JACEK ESPANA MD Feb 26, 2025 12:01
--- NOTE | 2025-02-26 14:09 | DVH ---
Procedure: XY SMALL BOWEL SERIES-W GASTROGRA Reason for study/Clinical History: SBO Comparison Study: XY SMALL BOWEL SERIES-W GASTROGRA on DOS: 05/18/23, SMBG on DOS: 07/23/22, SMALL BAKARI L SERIES-W GASTROGRA on DOS: 07/23/22 Technique: Single contrast small bowel series performed. FINDINGS/IMPRESSION: Initial alternative medicine practitioner view of the abdomen and pelvis appears demonstrates no acute process. Contrast is identified within the colon by 3 hours. This represents a normal small bowel transit hui e.
[2025-02-27] VITALS (8 sets, daily range): BP systolic 132–175; BP diastolic 64–101; PULSE 58–66; RESP 14–18; TEMP 97.1–98; O2SAT 94–98
[2025-02-27] MEDS: ONDANSETRON HCL 4 MG/2 ML VIAL ONE (07:27)
[2025-02-27] MEDS: GASTROGRAFIN 120 ML SOL ONE (07:27)
--- NOTE | 2025-02-27 11:33 | DVHPN2 ---
Reviewed: Care Plan, H&P, Labs, Medications, Previous Orders, Radiology Changes from previous H/P or p: No Changes Eyes: No Pain, No Vision change, No Conjunctivae inflammation, No Eyelid inflammation, No Other, No Redness ENT: No Ear pain, No Ear discharge, No Nose pain, No Nose discharge, No Nose congestion, No Mouth pain, No Mouth swelling, No Throat pain, No Throat swelling, No Other Cardiovascular: No Chest Pain, No Palpitations, No Orthopnea, No Paroxysmal Noc. Dyspnea, No Edema, No Lt Headedness, No Other Respiratory: No Cough, No Dry, No Shortness of breath, No SOB with excertion, No Wheezing, No Hemoptysis, No Pleuritic Pain, No Sputum, No Other Gastrointestinal: Nausea, Vomiting, Abdominal Pain; No Diarrhea, No Constipation, No Melena, No Hematochezia, No Other Genitourinary: No Dysuria, No Frequency, No Incontinence, No Hematuria, No Retention, No Other Musculoskeletal: No other, No neck pain, No shoulder pain, No arm pain, No back pain, No hand pain, No leg pain, No foot pain Skin: No Rash, No Lesions, No Jaundice, No Bruising, No Other Objective Vitals Vital Signs Date Time Temp Pulse Resp B/P (MAP) Pulse Ox O2 Delivery O2 Flow Rate FiO2 02/27/25 09:51 143/63 02/27/25 09:00 97.1 58 18 97 97.1 02/27/25 07:21 Room Air* 0 21 Intake/Output Intake and Output 02/27/25 07:00 Intake Total 1090 ml Balance 1090 ml Intake Oral 0 ml IV Total 1090 ml # Voids 8 # Bowel Movements 6 Medications Current Medications Medications Dose Ordered Sig/Heather Route Start Time Stop Time Status Last Admin Dose Admin Sodium Chloride 1,000 ml @ 60 mls/hr [id number] IV 02/24/25 15:00 02/27/25 09:53 60 MLS/HR Ondansetron HCl 4 mg Q4HP PRN IV 02/24/25 15:00 02/24/25 18:21 4 MG Enoxaparin Sodium 40 mg DAILY SC 02/25/25 10:00 02/27/25 09:50 40 MG Patient Own Medication 1 tab DAILY PO 02/25/25 10:00 02/27/25 09:53 1 TAB Diagnostic Test (Pha) 1 strip Q6HR 02/24/25 18:00 02/27/25 05:30 1 STRIP Insulin Human Regular Q6HR SC 02/24/25 18:00 Dextrose 50 ml UD PRN IV 02/24/25 15:30 Ipratropium [place] 0.5 mg Q4HPRN PRN NEB 02/24/25 15:45 Pantoprazole Sodium 40 mg DAILY IV 02/25/25 10:00 02/27/25 09:49 40 MG Metronidazole 100 ml @ 100 mls/hr Q8HR IV 02/24/25 22:00 02/27/25 05:26 100 MLS/HR Levofloxacin/ Dextrose 100 ml @ 100 mls/hr DAILY IV 02/25/25 10:00 UNV Albuterol 2.5 mg Q4HPRN PRN NEB 02/24/25 15:45 Levofloxacin 50 ml @ 50 mls/hr DAILY IV 02/25/25 10:00 02/27/25 09:51 50 MLS/HR Amlodipine Besylate 5 mg DAILY PO 02/25/25 10:00 02/27/25 09:51 5 MG Lisinopril 5 mg DAILY PO 02/25/25 10:00 02/27/25 09:50 5 MG Clonidine HCl 0.2 mg Q6HP PRN PO 02/26/25 16:45 02/27/25 05:39 0.2 MG Laboratory Results Laboratory Tests 02/25/25 05:51 Urinalysis Test 02/24/25 11:30 Urine Color Light-yellow (Yellow) Urine Clarity Clear (Clear) Urine pH 6.5 (5.0-9.0) Urine Specific [place] 1.018 (1.001-1.035) Urine Protein 1+ (Negative) H Urine Ketones 2+ (Negative) H Urine Blood Negative /uL (Negative) Urine Nitrite Negative (Negative) Urine Bilirubin Negative (Negative) Urine Urobilinogen Normal mg/dL (Negative) Urine Leukocyte Esterase Negative /uL (Negative) Urine RBC 8 /hpf (0 - 4) Urine Microscopic WBC 2 /HPF (0-5) Urine Squamous Epithelial Cells Few /hpf (<5) Urine Bacteria None seen /hpf (None Seen) Urine Glucose Trace mg/dL (Normal) Microbiology Microbiology Date/Time Source Procedure Growth Status 02/24/25 11:45 Blood Blood Culture - Preliminary NO GROWTH AFTER 48 HOURS OF INCUBATION. 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 Taurus Christianson Gastrografin study shows resolving small-bowel obstruct History of ventral hernias Sepsis secondary to small-bowel obstruction Levaquin Flagyl, COPD History of smoking Possible aspiration pneumonia Hypertension Type 2 diabetes Obesity Time spent 55 minutes Advanced care planning time 20 minutes Patient is full code Plan discussed with: Patient My Orders Orders - JACEK ESPANA MD Procedure Category Date Status Time Clonidine Hcl Tablet PHA 02/26/25 In Process (Catapres Tablet) 16:45 Date of Service: Feb 27, 2025 Billing Provider: JACEK ESPANA MD Common Visit Codes: [id number] INP/OBS CARE(HIGH) JACEK ESPANA MD Feb 27, 2025 11:33
[2025-02-28] VITALS (9 sets, daily range): BP systolic 117–168; BP diastolic 51–86; PULSE 57–96; RESP 16–19; TEMP 97.8–98.5; O2SAT 92–96
[2025-02-28] MEDS: ONDANSETRON HCL 4 MG/2 ML VIAL IV PRN (02:26)
--- NOTE | 2025-02-28 10:47 | DVHPN2 ---
Progress Note Date Seen: Feb 28, 2025 Medical Necessity Reason Pt with a Central, PICC or Fol: No Objective vital signs Vital Sign Date Time Temp Pulse Resp B/P (MAP) Pulse Ox O2 Delivery O2 Flow Rate FiO2 02/28/25 10:18 145/73 02/28/25 08:30 97.9 64 18 95 97.9 02/28/25 06:07 Room Air 0.0 02/28/25 06:07 21 Total Intake and Output 02/27/25 02/27/25 02/28/25 15:00 23:00 07:00 Intake Total 230 ml 680 ml 100 ml Balance 230 ml 680 ml 100 ml medications Current Medications Medications Dose Ordered Sig/Heather Route Start Time Stop Time Status Last Admin Dose Admin Sodium Chloride 1,000 ml @ 60 mls/hr [id number] IV 02/24/25 15:00 02/28/25 02:30 60 MLS/HR Enoxaparin Sodium 40 mg DAILY SC 02/25/25 10:00 02/28/25 10:16 40 MG Patient Own Medication 1 tab DAILY PO 02/25/25 10:00 02/28/25 10:18 1 TAB Diagnostic Test (Pha) 1 strip Q6HR 02/24/25 18:00 02/28/25 06:19 1 STRIP Insulin Human Regular Q6HR SC 02/24/25 18:00 Dextrose 50 ml UD PRN IV 02/24/25 15:30 Ipratropium [place] 0.5 mg Q4HPRN PRN NEB 02/24/25 15:45 Pantoprazole Sodium 40 mg DAILY IV 02/25/25 10:00 02/28/25 10:15 40 MG Metronidazole 100 ml @ 100 mls/hr Q8HR IV 02/24/25 22:00 02/28/25 05:17 100 MLS/HR Levofloxacin/ Dextrose 100 ml @ 100 mls/hr DAILY IV 02/25/25 10:00 UNV Albuterol 2.5 mg Q4HPRN PRN NEB 02/24/25 15:45 Levofloxacin 50 ml @ 50 mls/hr DAILY IV 02/25/25 10:00 02/28/25 10:18 50 MLS/HR Amlodipine Besylate 5 mg DAILY PO 02/25/25 10:00 02/28/25 10:17 5 MG Lisinopril 5 mg DAILY PO 02/25/25 10:00 02/28/25 10:18 5 MG Clonidine HCl 0.2 mg Q6HP PRN PO 02/26/25 16:45 02/27/25 22:38 0.2 MG Ondansetron HCl 4 mg Q4HP PRN IV 02/28/25 02:15 02/28/25 02:26 4 MG laboratory and microbiology Laboratory Tests 02/25/25 05:51 Test 02/25/25 05:51 Range/Units Serum Glucose 128 H 74-106 mg/dL Microbiology Date/Time Source Procedure Growth Status 02/24/25 11:45 Blood Blood Culture - Preliminary NO GROWTH AFTER 72 HOURS OF INCUBATION. Resulted Problem List/Assessment/Plan Problem List/Assessment/Plan AFEBRILE VSS ABD SOFT INCARCERATED RLQ VENTRAL HERNIA REMAINS REDUCED BM + FLATUS + R/O SBO GASTROGRAFIN STUDY SBO RESOLVED NG REMOVED ALLOW CLEAR LIQUIDS CONSIDER EMERGENT/ELECTIVE SURGERY BASED ON ONGOING EVAL ABD BINDER INSTRUCTED NURSE AT BEDSIDE Plan discussed with: Patient JAMES DANIELS MD Feb 28, 2025 10:47
[2025-02-28] MEDS ORDERED: LEVO500T91 PO (11:54)
[2025-02-28] MEDS ORDERED: METR-344 PO (11:54)
--- NOTE | 2025-02-28 11:55 | DVHPN2 ---
Reviewed: Care Plan, H&P, Labs, Medications, Previous Orders, Radiology Changes from previous H/P or p: No Changes Eyes: No Pain, No Vision change, No Conjunctivae inflammation, No Eyelid inflammation, No Other, No Redness ENT: No Ear pain, No Ear discharge, No Nose pain, No Nose discharge, No Nose congestion, No Mouth pain, No Mouth swelling, No Throat pain, No Throat swelling, No Other Cardiovascular: No Chest Pain, No Palpitations, No Orthopnea, No Paroxysmal Noc. Dyspnea, No Edema, No Lt Headedness, No Other Respiratory: No Cough, No Dry, No Shortness of breath, No SOB with excertion, No Wheezing, No Hemoptysis, No Pleuritic Pain, No Sputum, No Other Gastrointestinal: Nausea, Vomiting, Abdominal Pain; No Diarrhea, No Constipation, No Melena, No Hematochezia, No Other Genitourinary: No Dysuria, No Frequency, No Incontinence, No Hematuria, No Retention, No Other Musculoskeletal: No other, No neck pain, No shoulder pain, No arm pain, No back pain, No hand pain, No leg pain, No foot pain Skin: No Rash, No Lesions, No Jaundice, No Bruising, No Other Objective Vitals Vital Signs Date Time Temp Pulse Resp B/P (MAP) Pulse Ox O2 Delivery O2 Flow Rate FiO2 02/28/25 10:18 145/73 02/28/25 08:30 97.9 64 18 95 97.9 02/28/25 06:07 Room Air 0.0 02/28/25 06:07 21 Intake/Output Intake and Output 02/28/25 07:00 Intake Total 1010 ml Balance 1010 ml Intake Oral 0 ml IV Total 1010 ml # Voids 5 # Bowel Movements 1 Medications Current Medications Medications Dose Ordered Sig/Heather Route Start Time Stop Time Status Last Admin Dose Admin Sodium Chloride 1,000 ml @ 60 mls/hr [id number] IV 02/24/25 15:00 02/28/25 02:30 60 MLS/HR Enoxaparin Sodium 40 mg DAILY SC 02/25/25 10:00 02/28/25 10:16 40 MG Patient Own Medication 1 tab DAILY PO 02/25/25 10:00 02/28/25 10:18 1 TAB Diagnostic Test (Pha) 1 strip Q6HR 02/24/25 18:00 02/28/25 06:19 1 STRIP Insulin Human Regular Q6HR SC 02/24/25 18:00 Dextrose 50 ml UD PRN IV 02/24/25 15:30 Ipratropium [place] 0.5 mg Q4HPRN PRN NEB 02/24/25 15:45 Pantoprazole Sodium 40 mg DAILY IV 02/25/25 10:00 02/28/25 10:15 40 MG Metronidazole 100 ml @ 100 mls/hr Q8HR IV 02/24/25 22:00 02/28/25 05:17 100 MLS/HR Levofloxacin/ Dextrose 100 ml @ 100 mls/hr DAILY IV 02/25/25 10:00 UNV Albuterol 2.5 mg Q4HPRN PRN NEB 02/24/25 15:45 Levofloxacin 50 ml @ 50 mls/hr DAILY IV 02/25/25 10:00 02/28/25 10:18 50 MLS/HR Amlodipine Besylate 5 mg DAILY PO 02/25/25 10:00 02/28/25 10:17 5 MG Lisinopril 5 mg DAILY PO 02/25/25 10:00 02/28/25 10:18 5 MG Clonidine HCl 0.2 mg Q6HP PRN PO 02/26/25 16:45 02/27/25 22:38 0.2 MG Ondansetron HCl 4 mg Q4HP PRN IV 02/28/25 02:15 02/28/25 02:26 4 MG Laboratory Results Laboratory Tests 02/25/25 05:51 Urinalysis Test 02/24/25 11:30 Urine Color Light-yellow (Yellow) Urine Clarity Clear (Clear) Urine pH 6.5 (5.0-9.0) Urine Specific [place] 1.018 (1.001-1.035) Urine Protein 1+ (Negative) H Urine Ketones 2+ (Negative) H Urine Blood Negative /uL (Negative) Urine Nitrite Negative (Negative) Urine Bilirubin Negative (Negative) Urine Urobilinogen Normal mg/dL (Negative) Urine Leukocyte Esterase Negative /uL (Negative) Urine RBC 8 /hpf (0 - 4) Urine Microscopic WBC 2 /HPF (0-5) Urine Squamous Epithelial Cells Few /hpf (<5) Urine Bacteria None seen /hpf (None Seen) Urine Glucose Trace mg/dL (Normal) Microbiology Microbiology Date/Time Source Procedure Growth Status 02/24/25 11:45 Blood Blood Culture - Preliminary NO GROWTH AFTER 72 HOURS OF INCUBATION. 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 Taurus Christianson Gastrografin study shows resolving small-bowel obstruction NG-tube removed patient is tolerating liquid diet and no abdominal pain, abdominal binder in place History of ventral hernia Sepsis secondary to small-bowel obstruction Levaquin Flagyl, COPD History of smoking Possible aspiration pneumonia Hypertension Type 2 diabetes Obesity Time spent 55 minutes Advanced care planning time 20 minutes Patient is full code Plan discussed with: Patient Date of Service: Feb 28, 2025 Billing Provider: JACEK ESPANA MD Common Visit Codes: [id number] INP/OBS CARE(HIGH) JACEK ESPANA MD Feb 28, 2025 11:55
--- NOTE | 2025-02-28 12:02 | DVHDS2 ---
Discharge Summary Date of Admission Feb 24, 2025 at 14:46 Date of Discharge: Feb 28, 2025 Admitting Diagnosis Abdominal pain nausea and vomiting Wounds: None Labs/Diagnostic Data: Laboratory Results Test 02/28/25 06:13 02/25/25 05:51 02/24/25 15:00 02/24/25 11:30 POC Glucose 116 mg/dl (70-106) White Blood Count 11.8 10^3/uL (4.4-10.8) Red Blood Count 4.82 10^6/uL (4.0-5.20) Hemoglobin 14.3 g/dL (12.2-16.2) Hematocrit 42.2 % (36.0-46.0) Mean Corpuscular Volume 87.6 fL (80.0-100.0) Mean Corpuscular Hemoglobin 29.6 pg (28.0-32.0) Mean Corpuscular Hemoglobin Concent 33.7 g/dL (32.0-36.0) Red Cell Distribution Width 14.5 % (11.8-14.3) Platelet Count 143 10^3/uL (140-450) Mean Platelet Volume 8.9 fL (6.9-10.8) Neutrophils (%) (Auto) 74.4 % (37.0-80.0) Lymphocytes (%) (Auto) 16.8 % (10.0-50.0) Monocytes (%) (Auto) 8.3 % (0.0-12.0) Eosinophils (%) (Auto) 0.1 % (0.0-7.0) Basophils (%) (Auto) 0.4 % (0.0-2.0) Neutrophils # (Auto) 8.8 10 ^3/uL (1.6-8.6) Lymphocytes # (Auto) 2.0 10 ^3/uL (0.4-5.4) Monocytes # (Auto) 1.0 10 ^3/uL (0-1.3) Eosinophils # (Auto) 0 10 ^3/uL (0-0.8) Basophils # (Auto) 0 10 ^3/uL (0-0.2) Nucleated Red Blood Cells 0.2 % Sodium Level 146 mmol/L (136-145) Potassium Level 3.9 mmol/L (3.5-5.1) Chloride Level 114 mmol/L (98-107) Carbon Dioxide Level 22 mmol/L (20-31) Anion Gap 10 (5-15) Blood Urea Nitrogen 13 mg/dL (9-23) Creatinine 0.86 mg/dL (0.550-1.02) Glomerular Filtration Rate Calc 70 mL/min (>90) BUN/Creatinine Ratio 15.1 (10.0-20.0) Serum Glucose 128 mg/dL (74-106) Calcium Level 9.1 mg/dL (8.7-10.4) Total Bilirubin 0.4 mg/dL (0.2-1.0) Aspartate Amino Transferase (AST) 26 U/L (13-40) Alanine Aminotransferase (ALT) 24 U/L (7-40) Alkaline Phosphatase 52 U/L (46-116) Total Protein 5.9 g/dL (5.7-8.2) Albumin 4.0 g/dL (3.2-4.8) Lactic Acid Level 1.8 mmol/L (0.4-2.0) Urine Color Light-yellow (Yellow) Urine Clarity Clear (Clear) Urine pH 6.5 (5.0-9.0) Urine Specific [place] 1.018 (1.001-1.035) Urine Protein 1+ (Negative) Urine Ketones 2+ (Negative) Urine Blood Negative /uL (Negative) Urine Nitrite Negative (Negative) Urine Bilirubin Negative (Negative) Urine Urobilinogen Normal mg/dL (Negative) Urine Leukocyte Esterase Negative /uL (Negative) Urine RBC 8 /hpf (0 - 4) Urine Microscopic WBC 2 /HPF (0-5) Urine Squamous Epithelial Cells Few /hpf (<5) Urine Bacteria None seen /hpf (None Seen) Urine Glucose Trace mg/dL (Normal) Test 02/24/25 10:30 Hemoglobin A1c 6.0 % A1C (<5.7) Troponin I High Sensitivity 6 ng/L (</=34) Other Laboratory Tests 02/25/25 05:51 Brief Hx & Hospital Course: 69-year-old female with a history of ventral hernia COPD smoking hypotension type 2 diabetes obesity came in for abdominal pain nausea and vomiting. CT abdomen pelvis without contrast showed small bowel obstruction secondary to spigelian hernia. Surgical consult by Dr. Taurus Christianson who D-dimer manual reduction of the hernia and abdominal binder was applied NG suction was initiated with the IV fluids and removed after patient's symptoms have improved. Small-bowel follow-through series showed resolving small bowel obstruction. At the time of discharge patient is tolerating liquid diet afebrile stable vital signs. Discharged home on Levaquin and Flagyl. She will follow up with surgeon Dr. Taurus Christianson in 10 days Consults/Reason for consult Surgeon Dr. Taurus Christianson Operations or Procedures CT abdomen pelvis without contrast Barium follow-through Condition at Discharge: Fair Final Diagnosis/Problems List Acute small bowel obstruction due to Spigelian hernia status post manual reduction by surgeon Dr. Taurus Christianson Gastrografin study shows resolving small-bowel obstruction NG-tube removed patient is tolerating liquid diet and no abdominal pain, abdominal binder in place History of ventral hernia Sepsis secondary to small-bowel obstruction Levaquin Flagyl, COPD History of smoking Possible aspiration pneumonia Hypertension Type 2 diabetes Obesity Discharge Disposition: Home Discharge Instruct/Medications Diet: Regular Activity: Light activity Follow Up/Referral: Follow up with surgeon Dr. Taurus Christianson in 10 days Follow up with your primary Dr Elena all previous home medication Medications: Levaquin Flagyl Transmitted to [facility] pharmacy [address] Scheduled Amlodipine Besylate (Amlodipine Besylate), 1 TAB PO DAILYPRN, (Reported) Fluticasone Propionate (Nasal) (Fluticasone Propionate), 1 SPRAY CARO DAILYPRN, (Reported) Fluticasone-Salmeterol (Advair Diskus 100-50 Mcg/Dose), 1 PUFF INH BID, (Reported) Gabapentin (Gabapentin), 200 MG PO DAILY, (Reported) Levofloxacin (Levaquin), 500 MG PO DAILY Levofloxacin Hemihydrate (Levaquin 500 Mg), 1 TAB PO DAILY Levofloxacin Hemihydrate (Levaquin 500 Mg), 1 TAB PO DAILY Lisinopril (Lisinopril), 1 TAB PO DAILY, (Reported) Metronidazole (Flagyl), 500 MG PO TID Metronidazole (Metronidazole), 500 MG PO TID Metronidazole (Flagyl), 1 TAB PO TID Pantoprazole Sodium Sesquihydr (Pantoprazole Sodium), 1 TAB PO DAILY, (Reported) Sertraline Hcl (Sertraline Hcl), 1 TAB PO DAILYPRN, (Reported) Sitagliptin Phosphate (Januvia), 1 TAB PO DAILY, (Reported) Miscellaneous Medications Fluoxetine HCl (Fluoxetine HCl), PO, (Reported) Discontinued Medications Lisinopril (Lisinopril), 1 TAB PO DAILYPRN, (Reported) 39 (Time taken for discharge summary 39 minutes) Discharge Statement: "Patient was advised to return to the ER or call 911 if any headaches, dizziness, shortness of breath, chest pain, abdominal pain, bleeding, fevers, or worsening of medical condition. Patient was counseled about treatment plan, medications, possible side effects, patientverbalized understanding. All questions were answered to the best of my ability. This discharge took greater then 30 minutes in planning, reviewing documentation, counseling the patient, and discussing with other team members." ASSESSMENT ASSESSMENT Hospital Course Improved Assessment Acute small bowel obstruction due to Spigelian hernia status post manual reduction by surgeon Dr. Taurus Christianson Gastrografin study shows resolving small-bowel obstruction NG-tube removed patient is tolerating liquid diet and no abdominal pain, abdominal binder in place History of ventral hernia Sepsis secondary to small-bowel obstruction Levaquin Flagyl, COPD History of smoking Possible aspiration pneumonia Hypertension Type 2 diabetes Obesity Date of Service: Feb 28, 2025 Billing Provider: JACEK ESPANA MD Common Visit Codes: 77297-AUX/OBS DISCH DAY >30min JACEK ESPANA MD Feb 28, 2025 12:02
== END 2025-02-28 19:30 | disposition home or self-care (01) | DRG 871 ==
LOC: EDBD 10:04 → ER 10:04 → OVERFLOW 14:46 → WEST WING 14:55 → ER 14:55 → WEST WING 17:43
PROVIDERS: ADMIT Family Medicine; ATTEND Family Medicine
PROC: 0D9670Z Drainage of Stomach with Drainage Device, Via Natural or Artificial Opening (ICD-10-PCS; principal; 2025-02-24)
DX: A41.9 Sepsis, unspecified organism (principal); J69.0 Pneumonitis due to inhalation of food and vomit; E87.20 Acidosis, unspecified; K43.6 Other and unspecified ventral hernia with obstruction, without gangrene; J44.9 Chronic obstructive pulmonary disease, unspecified; E66.9 Obesity, unspecified; Z68.34 Body mass index [BMI] 34.0-34.9, adult; E11.9 Type 2 diabetes mellitus without complications; I10 Essential (primary) hypertension; Z83.3 Family history of diabetes mellitus; Z90.49 Acquired absence of other specified parts of digestive tract; Z82.49 Family history of ischemic heart disease and other diseases of the circulatory system; Z88.6 Allergy status to analgesic agent; Z88.5 Allergy status to narcotic agent; Z88.1 Allergy status to other antibiotic agents; Z88.0 Allergy status to penicillin; Z88.2 Allergy status to sulfonamides; Z87.891 Personal history of nicotine dependence
CPT/HCPCS: 36415; 71045; 74176; 74250; 80053; 81001; 82962; 83036; 83605; 84484; 85025; 87040; 96365; 96368; 99291; G0378; J1956; J2405; J2470; J3490